=== PATIENT | male | born 1950 | race Caucasian/White ===

== ENCOUNTER 2017-06-25 12:30 | Inpatient (IN) | payer OTHER, MEDICARE ==
[2017-06-25] MEDS ORDERED: ONDANSETRON 4 MG/2 ML VIAL ONE (12:54)
[2017-06-25] MEDS ORDERED: ONDANSETRON 4 MG/2 ML VIAL IVP ONE (12:57)
[2017-06-25] MEDS ORDERED: NS 1,000 ML IV ONE ×3 (12:57→17:12)
[2017-06-25] MEDS ORDERED: CHLORPROMAZINE HCL IV ONE (13:07)
[2017-06-25] MEDS ORDERED: NS IV ONE (13:07)
--- NOTE | 2017-06-25 13:12 | EDPHY ---
H & P Time Seen by Provider: 06/25/17 12:50 HPI/ROS: CHIEF COMPLAINT: Hiccups, nausea and vomiting HISTORY OF PRESENT ILLNESS: The patient is a 66-year-old male with a history of recurrent hiccups who presents emergency department with multiple complaints. He states that on Tuesday night he complained of nausea after eating some grapes. On he began to have episodes of emesis. He has had emesis since . Approximately 10 episodes of nonbloody vomiting. He developed hiccups 2 days ago. These have been persistent since onset. Patient denies any chest pain shortness of breath. No abdominal pain. No diarrhea. No fevers. No dysuria frequency. The patient denies any recent weight loss. Patient states that he has a problem with hiccups in the past. He has been prescribed medication for his hiccups by Dr. Marx. He does not have any this medication currently. He does not recall the name. REVIEW OF SYSTEMS: My complete review of systems is negative except as mentioned in the HPI. Past Medical/Surgical History: Includes pickups, allergies Past surgical history: Includes bilateral hip replacement, inguinal hernia repair Social history: The patient does not smoke. He denies recent alcohol. Smoking Status: Former smoker Physical Exam: 36.7, 137/95, 87, 16, 93% room air GENERAL: Well-appearing, in no acute distress, alert. Hiccups HEENT: Eyes normal to inspection, normal pharynx, no signs of dehydration. NECK: No thyromegaly, no lymphadenopathy, supple. RESPIRATORY: Clear to auscultation bilaterally, no rales, rhonchi or wheezing. CVS: Regular rate and rhythm, no rubs, murmurs, or gallops. ABDOMEN: Soft, nontender, nondistended, no organomegaly. Benign BACK: Normal to inspection, no CVA tenderness. SKIN: Normal color, no rash, warm, dry. No pallor. EXTREMITIES: No pedal edema, no calf tenderness, cyst posterior left calf, no Homans sign or cords, no joint swelling. NEURO/PSYCH: Alert and oriented, normal mood and affect, normal motor sensory exam. No obvious cranial nerve deficit. Constitutional: Initial Vital Signs Temperature (C) 36.7 C 06/25/17 12:39 Heart Rate 87 06/25/17 12:39 Respiratory Rate 16 12/09/17 12:39 Blood Pressure 137/95 H 06/25/17 12:39 O2 Sat (%) 93 06/25/17 12:39 O2 Delivery Mode Room Air Allergies/Adverse Reactions: No Known Allergies Allergy (Verified 06/25/17 12:37) Home Medications: Medication Instructions Recorded Ascorbic Acid [Vitamin C 500 mg 500 mg PO DAILY 09/18/15 (*)] Cholecalciferol Vit D3 [Vitamin D3 2,000 units PO DAILY 09/18/15 2000 units] Cyclobenzaprine [Flexeril 10 MG 10 mg PO HS PRN 09/18/15 (*)] Famciclovir [Famvir] 1,500 mg PO ONCE PRN 09/18/15 Herbals/Supplements -Info Only 1 ea PO DAILY 09/18/15 Multivitamins [Multivitamin (*)] 1 each PO DAILY 09/18/15 Sildenafil Citrate [Viagra] 100 mg PO DAILY PRN 09/18/15 Acetaminophen [Tylenol 325mg (*)] 325 - 650 mg PO Q6 PRN #0 tab 11/06/15 Amoxicillin Trihydrate 500 mg PO TID 06/25/17 [Amoxicillin] Medical Decision Making - Diagnostics Imaging Results: Imaging Impressions Chest X-Ray 06/25/17 13:13 Impression: Air-filled distention of small bowel loops in the left upper quadrant. Otherwise negative chest.. Abdomen CT 06/25/17 13:58 Impression: 1. High-grade mechanical small bowel obstruction, transition located within the pelvis, associated with mild peritoneal ascites. Results called Dr. Son at 4:00 PM. ED Course/Re-evaluation: In the emergency department I discussed possible etiologies with the patient. I answered all his questions. An IV was placed. The patient received 1 L of normal saline for IV hydration. He was given Zofran 4 mg IV for nausea. The patient was given Thorazine 25 mg IV for hiccups. Patient's laboratory studies were notable for white count of 11. Hematocrit was normal. Platelets normal. His chemistry panel was unremarkable except for a mildly high anion gap. Chloride was 94. LFTs were normal. Chest x-ray: There is air in the stomach. No other acute abnormality noted. 1355: On recheck the patient is doing better. His hiccups having on for the past 10 min per report. Patient denies abdominal pain. He still has mild nausea. I rechecked the patient. He was feeling bad after his treatment with Thorazine. CT of the abdomen and pelvis: Please refer the dictated report by Dr. Brain Strickland. The patient has a large distal small-bowel obstruction with market dilatation. I discussed the results with the patient. I answered all his questions. I discussed the case with Dr. Garcia. He will admit the patient for further care. Dr. Garcia requested the patient have the 18 NG tube placed. I explained this to the patient. Dr. Garcia evaluated the patient. Patient reports that his hernia surgery was [address]. Garcia discussed the case Dr. Reynoso. He recommended we page Dr. Lake for admission. Differential Diagnosis: My differential includes but is not limited to intractable hiccups, vagal nerve stimulation, diaphragmatic injury, mass, malignancy, electrolyte abnormality, sugar abnormality, cholecystitis, pancreatitis, cholangitis, small-bowel obstruction, perforation, reflux - Data Points Laboratory Results: Laboratory Results 06/25/17 13:00 06/25/17 13:00 06/25/17 06/25/17 06/25/17 13:00 13:00 13:00 WBC RBC Hgb POC Hgb Hct POC Hct MCV MCH MCHC RDW Plt Count MPV Neut % (Auto) Lymph % (Auto) [place] % (Auto) Eos % (Auto) Baso % (Auto) Nucleat RBC Rel Count Absolute Neuts (auto) Absolute Lymphs (auto) Absolute Monos (auto) Absolute Eos (auto) Absolute Basos (auto) Absolute Nucleated RBC Immature Gran % Immature Gran # PT 13.1 SEC SEC (12.0-15.0) INR 0.97 (0.83-1.16) APTT 23.6 SEC SEC (23.0-38.0) POC Sodium Sodium 137 mEq/L mEq/L (134-144) POC Potassium Potassium 4.5 mEq/L mEq/L (3.5-5.2) POC Chloride Chloride 94 mEq/L L mEq/L (97-110) Carbon Dioxide 26 mEq/l mEq/l (22-31) Anion Gap 17 mEq/L H mEq/L (8-16) POC BUN BUN 21 mg/dL mg/dL (7-23) Creatinine 0.9 mg/dL mg/dL (0.7-1.3) POC Creatinine Estimated GFR > 60 Glucose 123 mg/dL H mg/dL (70-100) POC Glucose Calcium 10.1 mg/dL mg/dL (8.5-10.4) Total Bilirubin 0.8 mg/dL mg/dL (0.1-1.4) Conjugated Bilirubin 0.3 mg/dL mg/dL (0.0-0.5) Unconjugated Bilirubin 0.5 mg/dL mg/dL (0.0-1.1) AST 28 IU/L IU/L (17-59) ALT 38 IU/L IU/L (21-72) Alkaline Phosphatase 72 IU/L IU/L (38-126) Total Protein 8.4 g/dL H g/dL (6.3-8.2) Albumin 4.8 g/dL g/dL (3.5-5.0) Lipase 74 IU/L IU/L (23-300) 06/25/17 06/25/17 13:00 12:52 WBC 11.28 10^3/uL H 10^3/uL (3.80-9.50) RBC 5.25 10^6/uL 10^6/uL (4.40-6.38) Hgb 17.4 g/dL g/dL (13.7-17.5) POC Hgb 18.7 gm/dL H gm/dL (13.7-17.5) Hct 48.8 % % (40.0-51.0) POC Hct 55 % H % (40-51) MCV 93.0 fL fL (81.5-99.8) MCH 33.1 pg pg (27.9-34.1) MCHC 35.7 g/dL g/dL (32.4-36.7) RDW 12.1 % % (11.5-15.2) Plt Count 236 10^3/uL 10^3/uL (150-400) MPV 10.5 fL fL (8.7-11.7) Neut % (Auto) 79.3 % H % (39.3-74.2) Lymph % (Auto) 9.1 % L % (15.0-45.0) [place] % (Auto) 10.5 % % (4.5-13.0) Eos % (Auto) 0.4 % L % (0.6-7.6) Baso % (Auto) 0.3 % % (0.3-1.7) Nucleat RBC Rel Count 0.0 % % (0.0-0.2) Absolute Neuts (auto) 8.96 10^3/uL H 10^3/uL (1.70-6.50) Absolute Lymphs (auto) 1.03 10^3/uL 10^3/uL (1.00-3.00) Absolute Monos (auto) 1.18 10^3/uL H 10^3/uL (0.30-0.80) Absolute Eos (auto) 0.04 10^3/uL 10^3/uL (0.03-0.40) Absolute Basos (auto) 0.03 10^3/uL 10^3/uL (0.02-0.10) Absolute Nucleated RBC 0.00 10^3/uL 10^3/uL (0-0.01) Immature Gran % 0.4 % % (0.0-1.1) Immature Gran # 0.04 10^3/uL 10^3/uL (0.00-0.10) PT INR APTT POC Sodium 134 mEq/L mEq/L (134-144) Sodium POC Potassium 4.2 mEq/L mEq/L (3.3-5.0) Potassium POC Chloride 93 mEq/L L mEq/L (97-110) Chloride Carbon Dioxide Anion Gap POC BUN 21 mg/dL mg/dL (7-23) BUN Creatinine POC Creatinine 0.9 mg/dL mg/dL (0.7-1.3) Estimated GFR Glucose POC Glucose 126 mg/dL H mg/dL (70-100) Calcium Total Bilirubin Conjugated Bilirubin Unconjugated Bilirubin AST ALT Alkaline Phosphatase Total Protein Albumin Lipase Medications Given: Discontinued Medications Sodium Chloride (Ns) 1,000 mls @ 0 mls/hr IV ONCE ONE PRN Reason: Wide Open Stop: 06/25/17 12:58 Last Admin: 06/25/17 12:58 Dose: 1,000 mls Chlorpromazine HCl 50 mg/ (Sodium Chloride) 27 mls @ 62.4 mls/hr IV ONCE ONE Stop: 06/25/17 13:32 Last Admin: 06/25/17 14:44 Dose: 27 mls Sodium Chloride (Ns) 1,000 mls @ 0 mls/hr IV EDNOW ONE; Wide Open PRN Reason: Protocol Stop: 06/25/17 13:13 Last Admin: 06/25/17 14:43 Dose: 1,000 mls Lidocaine (Uroject Lidocaine 2% Jelly) 20 ml TP ONCE ONE Stop: 06/25/17 16:43 Last Admin: 06/25/17 16:45 Dose: 20 ml Ondansetron HCl (Zofran) 4 mg IVP EDNOW ONE Stop: 06/25/17 12:58 Last Admin: 06/25/17 12:58 Dose: 4 mg Point of Care Test Results: 06/25/17 12:52 POC Sodium 134 POC Potassium 4.2 POC Chloride 93 L POC BUN 21 POC Creatinine 0.9 POC Glucose 126 H Departure - Departure Disposition: [facility] [place] Inpatient Acute Clinical Impression: Hiccups, Small bowel obstruction Vomiting Qualifiers: Vomiting type: unspecified Vomiting Intractability: non-intractable Nausea presence: with nausea Qualified Code(s): R11.2 - Nausea with vomiting, unspecified Condition: Good
[2017-06-25 13:14] LABS: % IMMATURE GRANULYOCYTES 0.4 % (0.0-1.1); ABSOLUTE IMMATURE GRANULOCYTES 0.04 10^3/uL (0.00-0.10); ADD DIFF? NO; ADD MORPH? NO; ADD SCAN? NO; ANION GAP 17 mEq/L (8-16); ATYPICAL LYMPHOCYTE FLAG 0 (0-99); CALCIUM 10.1 mg/dL (8.5-10.4); CARBON DIOXIDE 26 mEq/l (22-31); CHLORIDE 94 mEq/L (97-110); CREATININE 0.9 mg/dL (0.7-1.3); FRAGMENT RBC FLAG 0 (0-99); GLOMERULAR FILTRATION RATE > 60; GLUCOSE 123 mg/dL (70-100); HEMATOCRIT 48.8 % (40.0-51.0); HEMOGLOBIN 17.4 g/dL (13.7-17.5); LEFT SHIFT FLG 0 (0-99); LIPEMIA HEMOLYSIS FLAG 90 (0-99); MEAN CELL HEMOGLOBIN 33.1 pg (27.9-34.1); MEAN CELL HEMOGLOBIN CONCENTR. 35.7 g/dL (32.4-36.7); MEAN PLATELET VOLUME 10.5 fL (8.7-11.7); PLATELET CLUMPS FLAG 0 (0-99); PLATELET COUNT 236 10^3/uL (150-400); POTASSIUM 4.5 mEq/L (3.5-5.2); RED BLOOD CELL COUNT 5.25 10^6/uL (4.40-6.38); RED CELL DISTRIBUTION WIDTH 12.1 % (11.5-15.2); SODIUM 137 mEq/L (134-144)
[2017-06-25 13:29] LABS: INR 0.97 (0.83-1.16); PROTIME(PATIENT) 13.1 SEC (12.0-15.0)
[2017-06-25 13:30] LABS: APTT 23.6 SEC (23.0-38.0)
[2017-06-25 13:39] LABS: ALBUMIN 4.8 g/dL (3.5-5.0); BILIRUBIN,TOTAL 0.8 mg/dL (0.1-1.4); BILIRUBIN-CONJUGATED 0.3 mg/dL (0.0-0.5); BILIRUBIN-UNCONJUGATED 0.5 mg/dL (0.0-1.1); TOTAL PROTEIN 8.4 g/dL (6.3-8.2)
[2017-06-25] MEDS ORDERED: IOPAMIDOL (ISOVUE-300) 100 ML BTL ONE (15:00)
[2017-06-25] MEDS ORDERED: LIDOCAINE 2% JELLY 20 ML (UROJECT) TP ONE (16:42)
[2017-06-25] MEDS ORDERED: LIDOCAINE 2% JELLY 20 ML (UROJECT) ONE (16:43)
--- NOTE | 2017-06-25 21:07 | PDCONSULT ---
Customer Service Security Officer Note: I was paged by the [facility] at 20:[address] orders for Mr. Steele, who is s/p recent inguinal hernia repair by Dr. Reynoso. The patient presented to the ED at 13: 08 and was seen by Dr. Lockhart and Dr. Garcia. He has been vomiting since and has not had a BM or passed any flatus since then The patient has what appears to be a high grade SBO by imaging and will require NGT decompression. If not improved surgery may be necessary. 06/26 06:30 PE: awake and alert/reports feeling better Abd: soft/+BS, lap hernia incisions healing w/mild ecchymosis no focal tenderness KUB shows NGT in good position wbc: 5.2 venous lactate 1.2 Imp: SBO recent lap inguinal hernia repair Rec: continue NGT decompression, consider SBFT I will contact his surgeon Dr. Reynoso, who is environmental services project manager today, for surgical follow up Esteban Lake MD, FACS
[2017-06-25] MEDS: LR 1,000 ML IV SCH (21:25)
[2017-06-25] MEDS: FAMOTIDINE 20 MG/NACL 50 ML IV SCH (21:40)
[2017-06-25] MEDS: DIAZEPAM 10 MG/2 ML SYR IVP PRN (22:12)
[2017-06-26] MEDS: LR 1,000 ML IV SCH ×3 (03:57→19:27)
[2017-06-26 04:42] LABS: % IMMATURE GRANULYOCYTES 0.2 % (0.0-1.1); ABSOLUTE IMMATURE GRANULOCYTES 0.01 10^3/uL (0.00-0.10); ADD DIFF? NO; ADD MORPH? NO; ADD SCAN? NO; ATYPICAL LYMPHOCYTE FLAG 10 (0-99); FRAGMENT RBC FLAG 0 (0-99); HEMATOCRIT 42.6 % (40.0-51.0); LEFT SHIFT FLG 10 (0-99); LIPEMIA HEMOLYSIS FLAG 90 (0-99); MEAN CELL HEMOGLOBIN 33.3 pg (27.9-34.1); MEAN CELL HEMOGLOBIN CONCENTR. 35.2 g/dL (32.4-36.7); MEAN CELL VOLUME 94.7 fL (81.5-99.8); MEAN PLATELET VOLUME 10.2 fL (8.7-11.7); PLATELET CLUMPS FLAG 0 (0-99); PLATELET COUNT 193 10^3/uL (150-400); RED CELL DISTRIBUTION WIDTH 12.1 % (11.5-15.2)
[2017-06-26 04:58] LABS: ALANINE AMINOTRANSFERASE 33 IU/L (21-72); ALBUMIN 3.6 g/dL (3.5-5.0); ALKALINE PHOSPHATASE 57 IU/L (38-126); ANION GAP 10 mEq/L (8-16); ASPARTATE AMINOTRANSFERASE 22 IU/L (17-59); BILIRUBIN,TOTAL 1.1 mg/dL (0.1-1.4); CALCIUM 8.8 mg/dL (8.5-10.4); CARBON DIOXIDE 30 mEq/l (22-31); CHLORIDE 97 mEq/L (97-110); CREATININE 0.9 mg/dL (0.7-1.3); GLOMERULAR FILTRATION RATE > 60; GLUCOSE 111 mg/dL (70-100); POTASSIUM 4.6 mEq/L (3.5-5.2); SODIUM 137 mEq/L (134-144); TOTAL PROTEIN 6.9 g/dL (6.3-8.2)
[2017-06-26] MEDS: FAMOTIDINE 20 MG/NACL 50 ML IV SCH ×2 (09:21→21:13)
--- NOTE | 2017-06-26 10:07 | SOAPPROG ---
SOAP Progress Note Assessment/Plan: Assessment: SBO s/p TEP BIHR, improving with NGT placement. Reviewed films/labs with patient; as he is improving plan for SBFT to assess possible mechanical obstruction. Possibility of requiring laparoscopy/laparotomy explained. Questions answered. Plan: 06/26/17 10:03 Subjective: 3 day h/o hiccups followed by N/V. Denies abd pain. Of note, the patient underwent tooth extraction 6 days ago. Missed a day of oral abx and took extra pills the day his symptoms began. Prior to this he was doing well, tolerating po and having normal bowel movements, the last being 06/23. Now denies pain or nausea. Objective: Vital Signs Temp Pulse Resp BP Pulse Ox 36.4 C 79 14 126/75 H 94 06/26/17 07:26 06/26/17 07:26 06/26/17 07:26 06/26/17 07:26 06/26/17 07:26 Laboratory Results 06/26/17 04:28 06/26/17 04:28 06/25/17 06/26/17 06/27/17 05:59 05:59 05:59 Intake Total 1014 Output Total 500 Balance 514 PT 13.1 SEC (12.0-15.0) 06/25/17 13:00 INR 0.97 (0.83-1.16) 06/25/17 13:00 Alert, NAD RRR CTA B Abd soft, NTTP Ecchymosis at umbilical incision site, no erythema No hernia palpated. NGT with 100 cc bilious over the last [address]/labs reviewed ICD10 Worksheet Patient Problems: Problems Problem Status Onset Hiccups Acute Small bowel obstruction Acute Vomiting Acute Primary localized osteoarthritis of left hip Acute
[2017-06-26] MEDS: ONDANSETRON 4 MG/2 ML VIAL IVP PRN ×2 (11:15→19:44)
--- NOTE | 2017-06-26 14:10 | ASMTCMCOM ---
CM Note CM Note Notes: Pt admitted w/SBO. Discussed w/RN; pt normally independant, lives w/. DC needs not clear yet. CM w/f. Date Signed: 06/26/2017 02:10 PM Electronically Signed By:Mahi William RN
[2017-06-26] MEDS: PROMETHAZINE HCL 25 MG/ML INJ IVP PRN ×2 (14:53→21:12)
[2017-06-26] MEDS: DIAZEPAM 10 MG/2 ML SYR IVP PRN (21:55)
[2017-06-27] MEDS: ONDANSETRON 4 MG/2 ML VIAL IVP PRN ×3 (00:16→16:57)
[2017-06-27] MEDS: LR 1,000 ML IV SCH ×3 (02:15→18:24)
[2017-06-27] MEDS: PROMETHAZINE HCL 25 MG/ML INJ IVP PRN ×2 (04:41→14:44)
[2017-06-27 04:53] LABS: HEMATOCRIT 41.9 % (40.0-51.0); HEMOGLOBIN 14.3 g/dL (13.7-17.5); MEAN CELL HEMOGLOBIN 32.6 pg (27.9-34.1); MEAN CELL HEMOGLOBIN CONCENTR. 34.1 g/dL (32.4-36.7); MEAN CELL VOLUME 95.7 fL (81.5-99.8); RED BLOOD CELL COUNT 4.38 10^6/uL (4.40-6.38); RED CELL DISTRIBUTION WIDTH 12.2 % (11.5-15.2)
[2017-06-27 05:02] LABS: ALANINE AMINOTRANSFERASE 33 IU/L (21-72); ALBUMIN 3.6 g/dL (3.5-5.0); ALKALINE PHOSPHATASE 62 IU/L (38-126); ANION GAP 13 mEq/L (8-16); ASPARTATE AMINOTRANSFERASE 22 IU/L (17-59); BILIRUBIN,TOTAL 0.5 mg/dL (0.1-1.4); CARBON DIOXIDE 30 mEq/l (22-31); CHLORIDE 102 mEq/L (97-110); CREATININE 0.7 mg/dL (0.7-1.3); GLOMERULAR FILTRATION RATE > 60; GLUCOSE 120 mg/dL (70-100); POTASSIUM 4.1 mEq/L (3.5-5.2); SODIUM 145 mEq/L (134-144); TOTAL PROTEIN 6.9 g/dL (6.3-8.2)
--- NOTE | 2017-06-27 08:34 | SOAPPROG ---
SOAP Progress Note Assessment/Plan: Assessment: Improving, but still with nausea. Plan repeat xrays, clamping trial. If improved will advance diet. Plan: 06/26/17 10:03 06/27/17 08:32 Subjective: Patient with multiple large BM's overnight. Still with mild intermittent nausea. Denies pain. Objective: Vital Signs Temp Pulse Resp BP Pulse Ox 36.4 C 81 14 144/78 H 95 06/27/17 08:00 06/27/17 08:00 06/27/17 08:00 06/27/17 08:00 06/27/17 08:00 Laboratory Results 06/27/17 04:32 06/27/17 04:32 06/26/17 06/27/17 06/28/17 05:59 05:59 05:59 Intake Total 1014 2951 Output Total 500 2400 200 Balance 514 551 -200 PT 13.1 SEC (12.0-15.0) 06/25/17 13:00 INR 0.97 (0.83-1.16) 06/25/17 13:00 Alert, NAD RRR Abd soft, NTTP NGT with 200 cc over 8 hours. ICD10 Worksheet Patient Problems: Problems Problem Status Onset Hiccups Acute Small bowel obstruction Acute Vomiting Acute Primary localized osteoarthritis of left hip Acute
[2017-06-27] MEDS: FAMOTIDINE 20 MG/NACL 50 ML IV SCH ×2 (09:33→21:54)
[2017-06-27] MEDS ORDERED: D10W 1,000 ML IV PRN (13:38)
[2017-06-27] MEDS ORDERED: ALTEPLASE 2 MG VIAL IVP PRN (13:41)
[2017-06-27] MEDS: DIAZEPAM 10 MG/2 ML SYR IVP PRN (17:04)
[2017-06-27 17:31] LABS: % IMMATURE GRANULYOCYTES 0.3 % (0.0-1.1); ABSOLUTE IMMATURE GRANULOCYTES 0.02 10^3/uL (0.00-0.10); ADD DIFF? NO; ADD MORPH? NO; ADD SCAN? NO; ATYPICAL LYMPHOCYTE FLAG 0 (0-99); FRAGMENT RBC FLAG 0 (0-99); HEMATOCRIT 41.8 % (40.0-51.0); HEMOGLOBIN 13.9 g/dL (13.7-17.5); LEFT SHIFT FLG 10 (0-99); LIPEMIA HEMOLYSIS FLAG 80 (0-99); MEAN CELL HEMOGLOBIN 32.4 pg (27.9-34.1); MEAN CELL HEMOGLOBIN CONCENTR. 33.3 g/dL (32.4-36.7); MEAN CELL VOLUME 97.4 fL (81.5-99.8); MEAN PLATELET VOLUME 10.8 fL (8.7-11.7); PLATELET CLUMPS FLAG 0 (0-99); PLATELET COUNT 200 10^3/uL (150-400); RED BLOOD CELL COUNT 4.29 10^6/uL (4.40-6.38); RED CELL DISTRIBUTION WIDTH 12.3 % (11.5-15.2)
[2017-06-27] MEDS: ENOXAPARIN 40 MG/0.4 ML SYR SC SCH (17:33)
[2017-06-27 17:41] LABS: ALANINE AMINOTRANSFERASE 31 IU/L (21-72); ALBUMIN 3.8 g/dL (3.5-5.0); ALKALINE PHOSPHATASE 66 IU/L (38-126); ANION GAP 11 mEq/L (8-16); ASPARTATE AMINOTRANSFERASE 23 IU/L (17-59); BILIRUBIN,TOTAL 0.5 mg/dL (0.1-1.4); CARBON DIOXIDE 29 mEq/l (22-31); CHLORIDE 105 mEq/L (97-110); CREATININE 0.8 mg/dL (0.7-1.3); GLOMERULAR FILTRATION RATE > 60; GLUCOSE 114 mg/dL (70-100); MAGNESIUM 2.5 mg/dL (1.6-2.3); SODIUM 145 mEq/L (134-144); TOTAL PROTEIN 6.9 g/dL (6.3-8.2); TRIGLYCERIDE 59 mg/dL (40-150)
[2017-06-28] MEDS: PROMETHAZINE HCL 25 MG/ML INJ IVP PRN (00:40)
[2017-06-28] MEDS: LR 1,000 ML IV SCH ×2 (00:40→06:27)
[2017-06-28 06:02] LABS: INR 1.12 (0.83-1.16); PROTIME(PATIENT) 14.6 SEC (12.0-15.0)
[2017-06-28 06:03] LABS: APTT 24.3 SEC (23.0-38.0)
[2017-06-28 06:18] LABS: % IMMATURE GRANULYOCYTES 0.3 % (0.0-1.1); ABSOLUTE IMMATURE GRANULOCYTES 0.02 10^3/uL (0.00-0.10); ADD DIFF? NO; ADD MORPH? NO; ADD SCAN? NO; ATYPICAL LYMPHOCYTE FLAG 10 (0-99); FRAGMENT RBC FLAG 0 (0-99); HEMATOCRIT 39.8 % (40.0-51.0); HEMOGLOBIN 13.2 g/dL (13.7-17.5); LEFT SHIFT FLG 10 (0-99); LIPEMIA HEMOLYSIS FLAG 80 (0-99); MEAN CELL HEMOGLOBIN 32.7 pg (27.9-34.1); MEAN CELL HEMOGLOBIN CONCENTR. 33.2 g/dL (32.4-36.7); MEAN CELL VOLUME 98.5 fL (81.5-99.8); MEAN PLATELET VOLUME 11.2 fL (8.7-11.7); PLATELET CLUMPS FLAG 0 (0-99); PLATELET COUNT 186 10^3/uL (150-400); RED BLOOD CELL COUNT 4.04 10^6/uL (4.40-6.38); RED CELL DISTRIBUTION WIDTH 12.2 % (11.5-15.2)
[2017-06-28 06:23] LABS: ALANINE AMINOTRANSFERASE 35 IU/L (21-72); ALBUMIN 3.2 g/dL (3.5-5.0); ALKALINE PHOSPHATASE 56 IU/L (38-126); ANION GAP 12 mEq/L (8-16); ASPARTATE AMINOTRANSFERASE 21 IU/L (17-59); BILIRUBIN,TOTAL 0.7 mg/dL (0.1-1.4); CALCIUM 8.7 mg/dL (8.5-10.4); CARBON DIOXIDE 29 mEq/l (22-31); CHLORIDE 108 mEq/L (97-110); CREATININE 0.8 mg/dL (0.7-1.3); GLOMERULAR FILTRATION RATE > 60; GLUCOSE 99 mg/dL (70-100); MAGNESIUM 2.4 mg/dL (1.6-2.3); POTASSIUM 4.1 mEq/L (3.5-5.2); SODIUM 149 mEq/L (134-144); TOTAL PROTEIN 6.1 g/dL (6.3-8.2)
[2017-06-28] MEDS ORDERED: BENZOCAINE 57 G CAN HURRICAINE MM PRN (07:40)
--- NOTE | 2017-06-28 07:43 | SOAPPROG ---
SOAP Progress Note Assessment/Plan: Assessment: Unchanged. Patient wishes to try clamping trial again. Discussed surgical options again; patient will consider if clamping trial fails. Plan: 06/26/17 10:03 06/27/17 08:32 06/28/17 07:41 Subjective: Patient without complaints, no N/V. No BM. Denies pain Objective: Vital Signs Temp Pulse Resp BP Pulse Ox 36.9 C 75 21 H 127/69 H 97 06/28/17 04:00 06/28/17 04:00 06/28/17 04:00 06/28/17 04:00 06/28/17 04:00 Laboratory Results 06/28/17 05:15 06/28/17 05:15 06/27/17 06/28/17 06/29/17 05:59 05:59 05:59 Intake Total 2951 2920 Output Total 2400 1550 Balance 551 1370 PT 14.6 SEC (12.0-15.0) 06/28/17 05:15 INR 1.12 (0.83-1.16) 06/28/17 05:15 Alert, NAD RRR Abd soft, NTTP 300 NGT OP over 12 hours. ICD10 Worksheet Patient Problems: Problems Problem Status Onset Hiccups Acute Small bowel obstruction Acute Vomiting Acute Primary localized osteoarthritis of left hip Acute
[2017-06-28] MEDS ORDERED: D5W 1/2 NS W/ 20 KCl/L 1,000 ML IV SCH (07:45)
[2017-06-28] MEDS ORDERED: BENZOCAINE UNIT DOSE SPRAY HURRICAINE MM PRN (09:02)
[2017-06-28] MEDS ORDERED: CEPACOL LOZENGE PO PRN (09:02)
[2017-06-28] MEDS: FAMOTIDINE 20 MG/NACL 50 ML IV SCH (09:05)
[2017-06-28] MEDS: ENOXAPARIN 40 MG/0.4 ML SYR SC SCH (09:05)
[2017-06-28] MEDS ORDERED: D5W 1,000 ML IV SCH (13:15)
--- NOTE | 2017-06-28 15:11 | GCON ---
[f rep st] CONSULTATION MEDICAL CONSULTATION DATE OF CONSULTATION: 06/28/2017 REASON FOR CONSULTATION: Opinion regarding cause of vomiting. HISTORY OF PRESENT ILLNESS: The patient is a 66-year-old male who is otherwise healthy and underwent elective bilateral inguinal hernia repair on June 16. He did well postoperatively and states he did not take any opioid pain medications. He managed his pain with Tylenol and ibuprofen. Approximately 1 week postop, he had a tooth extracted. Again, he did not use any opioid pain medication. He returned to work the following day. He had been eating and drinking normally and having normal bowel movements until 6 days prior to presentation. At that time, he began to notice some increased lower abdominal discomfort and developed hiccups. These were quite severe for a couple of days. Then, the day before presentation, he began vomiting. He reported multiple episodes of vomiting. He denies any hematemesis or coffee-ground emesis. His last bowel movement was June 22 and he reported this was normal, large, formed stool. He denies fevers or chills. Given his persistent vomiting and increased pain, he presented to the emergency department where an abdominal CT scan revealed a high grade small bowel obstruction. He was admitted to the hospital to the surgery service for further management. Since admission, he has had an NG tube placed. He underwent a small bowel followthrough study on June 26, which showed incomplete transit of small bowel contrast at 4-1/2 hours. He has had significant output from his NG tube. However, he did have 2 small bowel movements yesterday. His NG tube is clamped today and the plan is to check for residuals. If he has low residuals, then he may be started on a clear liquid diet per the surgery service. At this time, he denies pain. He has had no vomiting today. He thinks he has heard some bowel sounds. He remains afebrile. He actually feels a bit hungry and would like to drink liquids. PAST MEDICAL AND SURGICAL HISTORY: 1. Bilateral inguinal hernia repair June 16, 2017. 2. Bilateral hip replacement. MEDICATIONS: Please see [facility] for completed outpatient medication list. ALLERGIES: He has no known drug allergies. SOCIAL HISTORY: The patient is . He lives independently. He works in sales at [employer]. He is a former smoker. He denies significant alcohol use. FAMILY HISTORY: Reviewed and noncontributory. REVIEW OF SYSTEMS: A 10-point review of systems was performed and is negative except as per HPI. OBJECTIVE: VITAL SIGNS: Temperature 37.2, blood pressure 130/77, heart rate 85 , respiratory rate 16, he is 96% on room air. GENERAL: The patient is awake, alert, oriented, in no acute distress. HEENT: Head is atraumatic, normocephalic. Pupils equal, round, and reactive to light, extraocular intact. Oropharynx is clear. Mucous membranes are moist. NG tube is in place. NECK : Supple. There is no JVD. HEART: Regular rate and rhythm without murmur. LUNGS: Clear auscultation bilaterally. ABDOMEN: Soft, nondistended. No significant tenderness to palpation. Slightly decreased bowel tones are heard. EXTREMITIES: Without cyanosis, clubbing, or edema. NEUROLOGIC: Grossly nonfocal. LABORATORY DATA: CBC earlier this morning reveals a normal white blood cell count, hemoglobin 13.2, platelets 186. INR is normal at 1.12. Sodium is elevated 149, creatinine is normal at 0.8, magnesium is 2.4. Note, he had a negative fecal occult blood test on June 27. His lactate was normal on admission. Abdomen CT June 25 showed high-grade mechanical small bowel obstruction with a transition point located within the pelvis and mild peritoneal ascites. Small bowel follow through June 26, 2017, showed findings consistent with mechanical small bowel obstruction, presumably involving the distal small bowel with incomplete transit of small bowel contrast at 4-1/2 hours. Abdomen x-ray June 27, 2017 shows findings consistent with persistent high- grade partial small bowel obstruction. ASSESSMENT AND PLAN: The patient is a 66-year-old male who is admitted to the hospital 12 days after inguinal hernia repair with a small bowel obstruction. 1. Small bowel obstruction: The patient is being managed by the surgery service. His nasogastric tube has been clamped today and we are currently monitoring for residuals. His surgeon has offered him surgery if he fails nasogastric tube clamping and the patient is considering this. I think it is unlikely there is another source of his vomiting. I will check a lipase, though I suspect his vomiting is likely related to his small bowel obstruction. His exam is reassuring today with no further vomiting. He remains n.p.o. and will consider a trial of clears if he passes his nasogastric tube clamping trial. 2. Hypernatremia: His sodium has climbed from 137 to 149. I will change his intravenous fluids to D5W at 100 an hour and recheck a sodium level tonight at 7 :00 p.m. with further fluid adjustments at that time. 3. Deep vein thrombosis prophylaxis: Lovenox. CODE STATUS: Patient is full code. DISPOSITION: Patient will continue inpatient status. Medicine service will continue to follow along. Please not hesitate to contact us with any further questions. /[id number]/MODL MTDD
--- NOTE | 2017-06-28 18:07 | ASMTCMCOM ---
CM Note CM Note Notes: Patient starting on TPN today. Still unknown if patient will discharge on TPN. NG clamped today. If he does well then they will consider surgery. Patient will most likely discharge home with home health pending decisions for TPN and surgery Case management will continue to follow. Date Signed: 06/28/2017 06:06 PM Electronically Signed By:WINSTON Purcell
[2017-06-28] MEDS ORDERED: TPN W/ FAMOTIDINE 1 EA BAG IV SCH (21:00)
[2017-06-28] MEDS: DIAZEPAM 10 MG/2 ML SYR IVP PRN (22:33)
[2017-06-29 05:44] LABS: % IMMATURE GRANULYOCYTES 0.3 % (0.0-1.1); ABSOLUTE IMMATURE GRANULOCYTES 0.02 10^3/uL (0.00-0.10); ADD DIFF? NO; ADD MORPH? NO; ADD SCAN? NO; ATYPICAL LYMPHOCYTE FLAG 40 (0-99); FRAGMENT RBC FLAG 0 (0-99); HEMATOCRIT 36.5 % (40.0-51.0); HEMOGLOBIN 12.3 g/dL (13.7-17.5); LEFT SHIFT FLG 10 (0-99); LIPEMIA HEMOLYSIS FLAG 80 (0-99); MEAN CELL HEMOGLOBIN 33.4 pg (27.9-34.1); MEAN CELL HEMOGLOBIN CONCENTR. 33.7 g/dL (32.4-36.7); MEAN CELL VOLUME 99.2 fL (81.5-99.8); MEAN PLATELET VOLUME 10.5 fL (8.7-11.7); PLATELET CLUMPS FLAG 20 (0-99); PLATELET COUNT 167 10^3/uL (150-400); RED BLOOD CELL COUNT 3.68 10^6/uL (4.40-6.38)
[2017-06-29 06:14] LABS: ALANINE AMINOTRANSFERASE 32 IU/L (21-72); ALBUMIN 2.6 g/dL (3.5-5.0); ALKALINE PHOSPHATASE 47 IU/L (38-126); ANION GAP 9 mEq/L (8-16); ASPARTATE AMINOTRANSFERASE 30 IU/L (17-59); BILIRUBIN,TOTAL 0.6 mg/dL (0.1-1.4); CARBON DIOXIDE 24 mEq/l (22-31); CHLORIDE 107 mEq/L (97-110); CREATININE 0.7 mg/dL (0.7-1.3); GLOMERULAR FILTRATION RATE > 60; GLUCOSE 117 mg/dL (70-100); MAGNESIUM 2.1 mg/dL (1.6-2.3); POTASSIUM 3.6 mEq/L (3.5-5.2); SODIUM 140 mEq/L (134-144); TOTAL PROTEIN 5.2 g/dL (6.3-8.2)
[2017-06-29 06:17] LABS: INR 1.17 (0.83-1.16); PROTIME(PATIENT) 15.1 SEC (12.0-15.0)
[2017-06-29 06:18] LABS: APTT 28.3 SEC (23.0-38.0)
[2017-06-29] MEDS ORDERED: D5W 1/2 NS W/ 20 KCl/L 1,000 ML IV SCH (08:45)
[2017-06-29 08:53] VITALS: RESP 18
[2017-06-29] MEDS ORDERED: K PHOS 10 MMOL in D5W 250 ML IV ONE (09:30)
[2017-06-29] MEDS: ENOXAPARIN 40 MG/0.4 ML SYR SC SCH (09:30)
--- NOTE | 2017-06-29 09:52 | SOAPPROG ---
SOAP Progress Note Assessment/Plan: Assessment: Markedly improved. Advance diet, d/c home if tolerated. Signs/symptoms of concern reviewed, questions answered. Plan: 06/26/17 10:03 06/27/17 08:32 06/28/17 07:41 06/29/17 09:51 Subjective: Patient feels better, tolerating po well, no N/V. + BM. Ambulating, voiding. Objective: Vital Signs Temp Pulse Resp BP Pulse Ox 36.7 C 72 18 117/79 94 06/29/17 08:50 06/29/17 08:50 06/29/17 08:50 06/29/17 08:50 06/29/17 08:50 Laboratory Results 06/29/17 05:35 06/29/17 05:35 06/28/17 06/29/17 06/30/17 05:59 05:59 05:59 Intake Total 2920 2483 Output Total 1550 100 Balance 1370 2383 PT 15.1 SEC (12.0-15.0) H 06/29/17 05:35 INR 1.17 (0.83-1.16) H 06/29/17 05:35 Alert, NAD RRR Abd soft, NTTP ICD10 Worksheet Patient Problems: Problems Problem Status Onset Hiccups Acute Small bowel obstruction Acute Vomiting Acute Primary localized osteoarthritis of left hip Acute
[2017-06-29] MEDS ORDERED: D5W 1,000 ML IV SCH (10:00)
[2017-06-29 17:04] VITALS: BP 154/87; PULSE 77; TEMP 97.9; O2SAT 95
--- NOTE | 2017-06-29 17:48 | ASDISCHSUM ---
Discharge Information Plan Status:Home with Home Health Medically Cleared to Leave: Discharge Date:06/29/2017 05:34 PM CM D/C Disposition: ADT D/C Disposition:Home, Routine, Self-Care Projected Discharge Date:06/29/2017 05:34 PM Transportation at D/C: Discharge Delay Reason: Follow-Up Date:06/29/2017 05:34 PM Discharge Slot: Final Diagnosis: Placement Information Patient Contact Information Contact Name:YANA Relationship: Address:[address] Work Phone: City:[place] [facility] Phone: State/Zip Code:[place] [address] Email: Financial Information Financial Class: Primary Plan Desc:MEDICARE INPATIENT Primary Plan Number:[id number] Secondary Plan Desc:[employer]/MDR SUPPLEMENT Secondary Plan Number:[id number] Assessment Information [facility] CM Progress Note CM Note CM Note Notes: Pt admitted w/SBO. Discussed w/RN; pt normally independant, lives w/. DC needs not clear yet. CM w/f. Date Signed: 06/26/2017 02:10 PM Electronically Signed By:Mahi William RN [facility] CM Progress Note CM Note CM Note Notes: Patient starting on TPN today. Still unknown if patient will discharge on TPN. NG clamped today. If he does well then they will consider surgery. Patient will most likely discharge home with home health pending decisions for TPN and surgery Case management will continue to follow. Date Signed: 06/28/2017 06:06 PM Electronically Signed By:WINSTON Purcell Intervention Information
--- NOTE | 2017-07-04 09:58 | PQFORM ---
PHYSICIAN QUERY FORM Needs Your Response This query form is being sent to you to assure this patient record is coded properly. Please respond to the question below: DIAGRAMMER AND SEAMER QUESTION: Dr Reynoso This patient with Intestinal Obstruction had Inguinal hernia repair 10 days prior to admission - would you consider the obstruction to be a complication of his previous surgery ? _X__ Yes ___ No ___ Unable to determine ___ Other (please specify ) Thank You Barbra SPIVEY Motion Picture Narrator INSTRUCTIONS FOR RESPONSE: Answer question by clicking on the "Edit Document" button. Move cursor to area below the stars. When complete, hit "Save." Click on the "Sign" button, then click "Sign" again. Type in your PIN and hit "Enter." MTDD
== END 2017-06-29 17:34 | disposition home or self-care (01) | DRG 389 ==
LOC: F1N 18:24 → OBSVTOIN 06-26 03:42 → UNDODISIN 06-29 16:05
PROVIDERS: ADMIT Surgery; ATTEND Surgery
PROC: 02HV33Z Insertion of Infusion Device into Superior Vena Cava, Percutaneous Approach (ICD-10-PCS; principal; 2017-06-27)
DX: K91.30 Postprocedural intestinal obstruction, unspecified as to partial versus complete (principal); E87.0 Hyperosmolality and hypernatremia; Z96.643 Presence of artificial hip joint, bilateral; Z87.891 Personal history of nicotine dependence
CPT/HCPCS: 82947-QW; 96365; C1751; J1650; J2405; J2550; J3230; Q9967

== ENCOUNTER 2017-06-29 20:06 | Inpatient (IN) | payer OTHER, MEDICARE ==
--- NOTE | 2017-06-29 21:51 | PDGENHP ---
History and Physical History and Physical: 66 y/o male discharged earlier today after apparent resolution of PSBO. Patient underwent TEP BIHR 2 weeks ago and developed N/V; admitted and imaging showed PSBO. Patient declined surgery at the time and improved. After discharge today he developed progressive N/V. Denies abd pain. No F/C. + BM. Still with bouts of emesis, described as bilious. PMHx: none PSHx: as above, B FREDY's Meds: none All: NKDA Currently AF VSS Alert, appears uncomfortable. RRR CTA B Abd slightly distended but soft NTTP Ecchymosis at umbilical incision site, no erythema. A/P: Recurrent PSBO. Options d/w patient and , recommend IVF and NGT placement. Will likely require diagnostic laparoscopy vs. exploratory laparotomy when stabilized. Signs/symptoms of concern discussed, question answered.
[2017-06-29] MEDS: ONDANSETRON 4 MG/2 ML VIAL IVP PRN (22:04)
[2017-06-29] MEDS: LR 1,000 ML IV SCH (22:04)
[2017-06-30] MEDS: PROMETHAZINE HCL 25 MG/ML INJ IVP PRN (01:24)
[2017-06-30] MEDS: HYDROmorphone HCL/NS/PF 0.4 MG/2 ML SYR IVP PRN ×2 (01:39→05:17)
[2017-06-30] MEDS: ONDANSETRON 4 MG/2 ML VIAL IVP PRN ×3 (03:53→22:35)
[2017-06-30 05:30] LABS: % IMMATURE GRANULYOCYTES 0.3 % (0.0-1.1); ABSOLUTE IMMATURE GRANULOCYTES 0.02 10^3/uL (0.00-0.10); ADD DIFF? NO; ADD MORPH? NO; ADD SCAN? NO; ATYPICAL LYMPHOCYTE FLAG 30 (0-99); FRAGMENT RBC FLAG 0 (0-99); HEMATOCRIT 40.9 % (40.0-51.0); HEMOGLOBIN 14.3 g/dL (13.7-17.5); LEFT SHIFT FLG 10 (0-99); LIPEMIA HEMOLYSIS FLAG 90 (0-99); MEAN CELL HEMOGLOBIN 33.3 pg (27.9-34.1); MEAN CELL VOLUME 95.1 fL (81.5-99.8); MEAN PLATELET VOLUME 11.2 fL (8.7-11.7); PLATELET CLUMPS FLAG 0 (0-99); PLATELET COUNT 185 10^3/uL (150-400); RED CELL DISTRIBUTION WIDTH 11.9 % (11.5-15.2)
[2017-06-30 05:45] LABS: ALANINE AMINOTRANSFERASE 44 IU/L (21-72); ALBUMIN 3.4 g/dL (3.5-5.0); ALKALINE PHOSPHATASE 64 IU/L (38-126); ANION GAP 13 mEq/L (8-16); ASPARTATE AMINOTRANSFERASE 31 IU/L (17-59); BILIRUBIN,TOTAL 0.7 mg/dL (0.1-1.4); CALCIUM 8.7 mg/dL (8.5-10.4); CARBON DIOXIDE 30 mEq/l (22-31); CHLORIDE 99 mEq/L (97-110); CREATININE 0.7 mg/dL (0.7-1.3); GLOMERULAR FILTRATION RATE > 60; GLUCOSE 107 mg/dL (70-100); POTASSIUM 3.6 mEq/L (3.5-5.2); SODIUM 142 mEq/L (134-144); TOTAL PROTEIN 6.4 g/dL (6.3-8.2)
--- NOTE | 2017-06-30 11:24 | SOAPPROG ---
SOAP Progress Note Assessment/Plan: Assessment: Recurrent PSBO. Options reviewed, plan for dx laparoscopy vs laparotomy for likely adhesion. Possibility of bowel resection explained. Questions answered. Plan for operative intervention this PM. Plan: 06/30/17 11:22 Subjective: Patient feels better, denies pain, N/V currently. No BM. Objective: Vital Signs Temp Pulse Resp BP Pulse Ox 36.9 C 81 20 134/83 H 93 06/30/17 07:53 06/30/17 07:53 06/30/17 07:53 06/30/17 07:53 06/30/17 07:53 Laboratory Results 06/30/17 04:06 06/30/17 04:06 06/29/17 06/30/17 07/01/17 05:59 05:59 05:59 Output Total 300 125 Balance -300 -125 Alert, NAD RRR Abd slightly distended but soft. NTTP ICD10 Worksheet Patient Problems: Problems Problem Status Onset Hiccups Acute Primary localized osteoarthritis of left hip Acute Small bowel obstruction Acute Vomiting Acute
[2017-06-30] MEDS: LR 1,000 ML IV SCH (11:31)
[2017-06-30] MEDS ORDERED: LR 500 ML IV ONE (12:00)
--- NOTE | 2017-06-30 12:05 | ASMTCMCOM ---
CM Note CM Note Notes: Pt admitted for recurrant PSBO. Per progress notes, pt will go to surgery later today. Pt lives at home w/. DC needs not clear at this time; CM will follow. Date Signed: 06/30/2017 12:04 PM Electronically Signed By:Mahi William RN
[2017-06-30] MEDS ORDERED: BUPIVACAINE 0.5% 30 ML SDV ONE (17:16)
[2017-06-30] MEDS ORDERED: MIDAZOLAM 2 MG/2 ML VIAL IVP ONE (17:29)
--- NOTE | 2017-06-30 17:29 | PDANEPAE ---
ANE History of Present Illness Diagnostic laparoscopy, poss. laparotomy ANE Past Medical History - Cardiovascular History Hx Hypertension: No Hx Arrhythmias: No Hx Chest Pain: No Hx Coronary Artery / Peripheral Vascular Disease: No Hx CHF / Valvular Disease: No Hx Palpitations: No - Pulmonary History Hx COPD: No Hx Asthma/Reactive Airway Disease: No Hx Recent Upper Respiratory Infection: No Hx Oxygen in Use at Home: No Hx Sleep Apnea: No Sleep Apnea Screening Result - Last Documented: Positive - Neurologic History Hx Cerebrovascular Accident: No Hx Seizures: No Hx Dementia: No - Endocrine History Hx Diabetes: No - Renal History Hx Renal Disorders: No - Liver History Hx Hepatic Disorders: No - Neurological & Psychiatric Hx Hx Neurological and Psychiatric Disorders: No - Cancer History Hx Cancer: Yes Cancer History Comment: MELANOMA L FOREARM - Congenital Disorder History Hx Congenital Disorders: No - GI History Hx Gastrointestinal Disorders: No - Other Health History Other Health History: NEG - Chronic Pain History Chronic Pain: No - Surgical History Prior Surgeries: R FREDY. MELANOMA L ARM. COLONOSCOPY ANE Review of Systems Review of Systems: ANE Patient History - Allergies Allergies/Adverse Reactions: No Known Allergies Allergy (Verified 06/25/17 12:37) - Home Medications Home medications: home medication list seen and reviewed Home Medications: Ascorbic Acid [Vitamin C 500 mg (*)] 500 mg PO DAILY 09/18/15 [Last Taken ] Cholecalciferol Vit D3 [Vitamin D3 2000 units] 2,000 units PO DAILY 09/18/15 [ Last Taken 06/24/17] Cyclobenzaprine [Flexeril 10 MG (*)] 10 mg PO HS PRN 09/18/15 [Last Taken ] Famciclovir [Famvir] 1,500 mg PO ONCE PRN 09/18/15 [Last Taken 10/22/15] Herbals/Supplements -Info Only 1 ea PO DAILY 09/18/15 [Last Taken 06/24/17] Multivitamins [Multivitamin (*)] 1 each PO DAILY 09/18/15 [Last Taken 06/24/17] Sildenafil Citrate [Viagra] 100 mg PO DAILY PRN 09/18/15 [Last Taken 10/22/15] Amoxicillin Trihydrate [Amoxil] 500 mg PO TID 06/25/17 [Last Taken 06/26/17] - NPO status NPO Since - Liquids (Date): 06/29/17 NPO Since - Liquids (Time): 18:00 NPO Since - Solids (Date): 06/29/17 NPO Since - Solids (Time): 12:00 - Smoking Hx Smoking Status: Former smoker ANE Labs/Vital Signs - Labs Result Diagrams: 06/30/17 04:06 06/30/17 04:06 - Vital Signs Blood Pressure: 109/64 Heart Rate: 77 Respiratory Rate: 18 O2 Sat (%): 86 Height: 172.72 cm Weight: 69.853 kg ANE Anesthesia Plan Anesthesia Plan: general endotracheal anesthesia
[2017-06-30] MEDS ORDERED: LR 1,000 ML IV ONE (17:51)
[2017-06-30] MEDS ORDERED: ROCURONIUM 50 MG/5 ML VIAL ONE ×2 (18:27→20:22)
[2017-06-30] MEDS ORDERED: DEXAMETHASONE 4 MG/ML VIAL ONE (18:27)
[2017-06-30] MEDS ORDERED: LIDOCAINE 2% 100 MG/5 ML SYR ONE (18:27)
[2017-06-30] MEDS ORDERED: ONDANSETRON 4 MG/2 ML VIAL ONE ×2 (18:27→22:31)
[2017-06-30] MEDS ORDERED: PROPOFOL 200 MG/20 ML VIAL ONE (18:27)
[2017-06-30] MEDS ORDERED: fentaNYL 250 MCG/5 ML INJ ONE (18:27)
[2017-06-30] MEDS ORDERED: PHENYLEPHRINE HCL 100 MCG/ML SYR ONE (18:42)
[2017-06-30] MEDS ORDERED: cefOXitin SODIUM 1 GM in D5W 50 ML IV ONE ×2 (18:45)
[2017-06-30] MEDS ORDERED: OXYCODONE/APAP 5/325 TAB PO PRN (20:02)
[2017-06-30] MEDS ORDERED: ACETAMINOPHEN 500 MG TAB PO PRN (20:02)
[2017-06-30] MEDS ORDERED: PROMETHAZINE HCL 25 MG/ML INJ IVP PRN (20:02)
[2017-06-30] MEDS ORDERED: MEPERIDINE 25 MG/ML SYR IVP PRN (20:02)
[2017-06-30] MEDS ORDERED: NALOXONE HCL 0.4 MG/ML INJ IVP PRN (20:02)
[2017-06-30] MEDS ORDERED: HYDROCODONE/APAP 5/325 TAB PO PRN (20:02)
--- NOTE | 2017-06-30 20:09 | POSTANESTH ---
Post Anesthetic Evaluation Cardiovascular Status: Normal, Stable, Similar to Pre-Op Cond Respiratory Status: Normal, Stable, Similar to Pre-op Cond. Level of Consciousness/Mental Status: Can Participate in Eval, Mildly Sleepy, Arousable Pain Control: Adequate, Prn Tx Ordered Nausea/Vomiting Control: Adequate, Prn Tx Ordered Complications Possibly Related to Anesthesia: None Noted
[2017-06-30] MEDS ORDERED: HYDROmorphONE/DILAUDID 2 MG/ML INJ ONE (21:24)
[2017-06-30] MEDS ORDERED: NEOSTIGMINE METHYLSULFATE 3 MG/3 ML SYR ONE (21:48)
[2017-06-30] MEDS ORDERED: GLYCOPYRROLATE 0.2 MG/1 ML VIAL ONE ×2 (21:48)
--- NOTE | 2017-06-30 22:21 | POSTOPPROG ---
Post Op Note Date of Operation: 06/30/17 Surgeon: Adrian Reynoso Anesthesiologist: Dr. Alejandra Anesthesia: GET(General Endotracheal) Pre-op Diagnosis: PSBO Post-op Diagnosis: SB adhesions Procedure: Lap assisted SB resection Findings: Adherent SB to L hernia mesh site Inf/Abcess present in the surg proc area at time of surgery?: Yes Depth: Organ Space EBL: 100-500
[2017-06-30] MEDS ORDERED: HYDROmorphONE/DILAUDID 1 MG/ML INJ ONE (22:31)
[2017-06-30] MEDS ORDERED: fentaNYL 100 MCG/2 ML INJ ONE (22:31)
[2017-06-30] MEDS: HYDROmorphONE/DILAUDID 1 MG/ML INJ IVP PRN ×2 (22:37→23:19)
[2017-06-30] MEDS: fentaNYL 100 MCG/2 ML INJ IVP PRN ×2 (22:37→22:49)
[2017-07-01] MEDS: PROMETHAZINE HCL 25 MG/ML INJ IVP PRN (00:11)
[2017-07-01] MEDS: HYDROmorphone HCL/NS/PF 0.4 MG/2 ML SYR IVP PRN ×6 (00:26→11:35)
[2017-07-01] MEDS: LORazepam 2 MG/ML INJ IVP SCH ×2 (00:44→21:15)
[2017-07-01] MEDS: ONDANSETRON 4 MG/2 ML VIAL IVP PRN ×3 (02:29→13:13)
[2017-07-01] MEDS: LR 1,000 ML IV SCH ×2 (03:41→13:19)
[2017-07-01 04:53] LABS: ADD MORPH? NO; ADD SCAN? YES; ATYPICAL LYMPHOCYTE FLAG 30 (0-99); FRAGMENT RBC FLAG 0 (0-99); HEMATOCRIT 38.5 % (40.0-51.0); HEMOGLOBIN 13.2 g/dL (13.7-17.5); LIPEMIA HEMOLYSIS FLAG 90 (0-99); MEAN CELL HEMOGLOBIN 33.1 pg (27.9-34.1); MEAN CELL HEMOGLOBIN CONCENTR. 34.3 g/dL (32.4-36.7); MEAN CELL VOLUME 96.5 fL (81.5-99.8); PLATELET CLUMPS FLAG 10 (0-99); PLATELET COUNT 202 10^3/uL (150-400); RED BLOOD CELL COUNT 3.99 10^6/uL (4.40-6.38); RED CELL DISTRIBUTION WIDTH 11.9 % (11.5-15.2)
[2017-07-01 05:01] LABS: LEFT SHIFT FLG 190 (0-99)
[2017-07-01 05:04] LABS: ALANINE AMINOTRANSFERASE 47 IU/L (21-72); ALBUMIN 2.8 g/dL (3.5-5.0); ALKALINE PHOSPHATASE 53 IU/L (38-126); ANION GAP 12 mEq/L (8-16); ASPARTATE AMINOTRANSFERASE 25 IU/L (17-59); BILIRUBIN,TOTAL 0.8 mg/dL (0.1-1.4); CALCIUM 8.2 mg/dL (8.5-10.4); CARBON DIOXIDE 27 mEq/l (22-31); CHLORIDE 102 mEq/L (97-110); CREATININE 0.7 mg/dL (0.7-1.3); GLOMERULAR FILTRATION RATE > 60; GLUCOSE 90 mg/dL (70-100); POTASSIUM 4.3 mEq/L (3.5-5.2); SODIUM 141 mEq/L (134-144); TOTAL PROTEIN 5.7 g/dL (6.3-8.2)
[2017-07-01 05:31] LABS: ADD DIFF? YES; SCAN POSITIVE
[2017-07-01 05:39] LABS: PLATELET ESTIMATE ADEQUATE (ADEQ)
[2017-07-01] MEDS ORDERED: D10W 1,000 ML IV PRN (10:16)
--- NOTE | 2017-07-01 10:16 | SOAPPROG ---
SOAP Progress Note Assessment/Plan: Assessment: s/p SB resection, stable. Cont NGT, IVF. Plan PICC/TPN. Plan: 06/30/17 11:22 07/01/17 10:14 Subjective: Patient feels better, no N/V. Pain controlled. No flatus/BM. Objective: Vital Signs Temp Pulse Resp BP Pulse Ox 36.9 C 102 H 16 126/80 H 91 L 07/01/17 07:14 07/01/17 07:14 07/01/17 07:14 07/01/17 07:14 07/01/17 07:14 Laboratory Results 07/01/17 04:17 07/01/17 04:17 06/30/17 07/01/17 07/02/17 05:59 05:59 05:59 Intake Total 3242 Output Total 300 775 Balance -300 2467 Alert, NAD RRR Abd sl distended but soft, inc TTP Drsg C/D/I ICD10 Worksheet Patient Problems: Problems Problem Status Onset Hiccups Acute Primary localized osteoarthritis of left hip Acute Small bowel obstruction Acute Vomiting Acute
[2017-07-01 12:07] LABS: MAGNESIUM 1.9 mg/dL (1.6-2.3)
[2017-07-01 21:48] LABS: % IMMATURE GRANULYOCYTES 0.4 % (0.0-1.1); ABSOLUTE IMMATURE GRANULOCYTES 0.03 10^3/uL (0.00-0.10); ADD DIFF? NO; ADD MORPH? NO; ADD SCAN? NO; ATYPICAL LYMPHOCYTE FLAG 50 (0-99); FRAGMENT RBC FLAG 0 (0-99); HEMATOCRIT 36.8 % (40.0-51.0); HEMOGLOBIN 12.7 g/dL (13.7-17.5); LEFT SHIFT FLG 20 (0-99); LIPEMIA HEMOLYSIS FLAG 90 (0-99); MEAN CELL HEMOGLOBIN 33.2 pg (27.9-34.1); MEAN CELL HEMOGLOBIN CONCENTR. 34.5 g/dL (32.4-36.7); MEAN CELL VOLUME 96.3 fL (81.5-99.8); MEAN PLATELET VOLUME 11.2 fL (8.7-11.7); PLATELET CLUMPS FLAG 20 (0-99); PLATELET COUNT 207 10^3/uL (150-400); RED BLOOD CELL COUNT 3.82 10^6/uL (4.40-6.38); RED CELL DISTRIBUTION WIDTH 12.2 % (11.5-15.2)
[2017-07-01 21:56] LABS: INR 1.24 (0.83-1.16); PROTIME(PATIENT) 15.8 SEC (12.0-15.0)
[2017-07-02] MEDS: HYDROmorphone HCL/NS/PF 0.4 MG/2 ML SYR IVP PRN ×3 (00:52→18:45)
[2017-07-02] MEDS: LR 1,000 ML IV SCH ×2 (00:52→11:09)
--- NOTE | 2017-07-02 05:40 | GOP ---
[f rep st] OPERATIVE REPORT DATE OF OPERATION: 06/30/2017 SURGEON: Reyes Reynoso MD ANESTHESIA: General endotracheal anesthesia. ANESTHESIOLOGIST: Mitch Alejandra MD. PREOPERATIVE DIAGNOSIS: Partial small bowel obstruction. POSTOPERATIVE DIAGNOSIS: Partial small bowel obstruction. PROCEDURE PERFORMED: Laparoscopic assisted small bowel resection. FINDINGS: Patient had inflammatory reaction with the small bowel adherent to the mesh and adjacent t issue in the left pelvis. No other lesions were identified. ESTIMATED BLOOD LOSS: 150 cc. INDICATIONS: This is a 66-year-old male who is status post laparoscopic totally extraperitoneal bila teral inguinal hernia repair 2 weeks prior. Patient had intermittent history of partial small bowel obstruction. The patient had multiple recurrences and decision was made to proceed with exploratory surgery. Risks and benefits of procedure have been discussed with the patient's family, their questi ons were answered and they wished to proceed. DESCRIPTION OF PROCEDURE: With the patient in the supine position, after induction of adequate gener al endotracheal anesthesia, the patient was prepped and draped in the standard surgical fashion. Mar stacey 0.5% was injected throughout the periumbilical area for local anesthesia. A 5 mm incision was made. The abdominal wall was elevated. Veress needle was inserted, and after noting proper pressure s, the abdomen was insufflated with carbon dioxide. A 5 mm trocar was passed. The camera followed. There was no apparent damage from trocar placement. Three more ports were placed, all 5 mm ports th roughout the lower abdomen. These were all placed under direct vision after injecting 0.5% Marcaine for local anesthesia. The abdomen was inspected. The right-sided preperitoneal mesh was without issue. The left side, how ever, had a knot of small bowel adherent to the tissues surrounding the left mesh. This was carefull y dissected using blunt dissection and sharp dissection. However, there were significant adhesions i n this area. After careful dissection, further progress could not be made without enterotomy. There fore, at this time, the decision was made to remove the left mesh as it was directly contaminated. T he small bowel was and the mesh removed without difficulty from the abdominal wall. The ep igastrics on the left side were encountered here and transected. They were clipped and divided. Due to the small bowel inflammation and enterotomy, decision was made to perform a resection. A mini-laparotomy site was made in the midline. This was done after injecting 0.5% Marcaine for loca l anesthesia. An Juan Manuel wound protector was placed. The mesh and the small bowel in question were d elivered through this mini-laparotomy site. The small bowel again appeared to be inflammatory, but w ithout mass or other lesion. There were approximately 2 separate sites of inflammation and damage to the small bowel. The resection was then performed to encompass both of these sites. The bowel prox imal and distal to these sites were brought together and a stay suture of 3-0 Vicryl placed. Enterot omies were made in the antimesenteric border and a blue load of the TREMAYNE stapler was placed. This was fired and the staple line inspected. Good hemostasis was noted. Windows were then opened in the fl sentery and the Endo-TREMAYNE stapler was then again fired to create the small bowel anastomosis. The mes entery for the resection was then clamped, divided, and ligated with 2-0 Vicryl ties. It was sent fo r permanent section. The remaining staple line was oversewn using 3-0 Vicryl in a running fashion. The area was inspected and good hemostasis noted. The anastomosis was palpated and found to be widel y patent. Tension relieving stitch was placed between the 2 anastomotic limbs with 3-0 Vicryl. The area was again inspected. No other lesions were identified. The abdomen was returned to its anatomi lars position. The remainder of the abdomen was inspected. No other lesions were noted. Good hemost asis noted throughout. The abdomen was then irrigated, aspirated with several liters of warm saline. Once the effluent returned clear, the area was inspected again. No other lesions were identified. The wound protector was removed and the fascia was closed with 0 PDS in a running fashion. The woun ds were thoroughly irrigated. The skin all sites closed with nic. Wounds sterilely dressed. Nicole blanco patient was taken to PACU in stable condition. /[id number]/MODL
[2017-07-02 06:35] LABS: % IMMATURE GRANULYOCYTES 0.8 % (0.0-1.1); ABSOLUTE IMMATURE GRANULOCYTES 0.07 10^3/uL (0.00-0.10); ADD DIFF? NO; ADD MORPH? NO; ADD SCAN? NO; ATYPICAL LYMPHOCYTE FLAG 50 (0-99); FRAGMENT RBC FLAG 0 (0-99); HEMATOCRIT 34.8 % (40.0-51.0); HEMOGLOBIN 11.9 g/dL (13.7-17.5); LEFT SHIFT FLG 10 (0-99); LIPEMIA HEMOLYSIS FLAG 90 (0-99); MEAN CELL HEMOGLOBIN 32.8 pg (27.9-34.1); MEAN CELL HEMOGLOBIN CONCENTR. 34.2 g/dL (32.4-36.7); MEAN CELL VOLUME 95.9 fL (81.5-99.8); MEAN PLATELET VOLUME 10.8 fL (8.7-11.7); PLATELET CLUMPS FLAG 0 (0-99); PLATELET COUNT 192 10^3/uL (150-400); RED BLOOD CELL COUNT 3.63 10^6/uL (4.40-6.38); RED CELL DISTRIBUTION WIDTH 11.9 % (11.5-15.2)
[2017-07-02 06:46] LABS: INR 1.18 (0.83-1.16); PROTIME(PATIENT) 15.2 SEC (12.0-15.0)
[2017-07-02 06:47] LABS: APTT 31.1 SEC (23.0-38.0)
[2017-07-02 06:50] LABS: ALANINE AMINOTRANSFERASE 39 IU/L (21-72); ALBUMIN 2.6 g/dL (3.5-5.0); ALKALINE PHOSPHATASE 54 IU/L (38-126); ANION GAP 9 mEq/L (8-16); ASPARTATE AMINOTRANSFERASE 23 IU/L (17-59); BILIRUBIN,TOTAL 0.3 mg/dL (0.1-1.4); CARBON DIOXIDE 26 mEq/l (22-31); CHLORIDE 106 mEq/L (97-110); CREATININE 0.7 mg/dL (0.7-1.3); GLOMERULAR FILTRATION RATE > 60; GLUCOSE 130 mg/dL (70-100); MAGNESIUM 2.3 mg/dL (1.6-2.3); SODIUM 141 mEq/L (134-144); TOTAL PROTEIN 5.2 g/dL (6.3-8.2)
--- NOTE | 2017-07-02 10:57 | SOAPPROG ---
SOAP Progress Note Assessment/Plan: Assessment: s/p SB resection, stable. d/c NGT, start clears. Plan: 06/30/17 11:22 07/01/17 10:14 07/02/17 10:53 Subjective: Patient feels better, no N/V. No flatus recently. Ambulating, voiding. Objective: Vital Signs Temp Pulse Resp BP Pulse Ox 36.9 C 75 16 157/91 H 90 L 07/02/17 03:43 07/02/17 03:43 07/02/17 03:43 07/02/17 03:43 07/02/17 03:43 Laboratory Results 07/02/17 06:10 07/02/17 06:10 07/01/17 07/02/17 07/03/17 05:59 05:59 05:59 Intake Total 3242 75 2336 Output Total 775 800 Balance 2467 -725 2336 PT 15.2 SEC (12.0-15.0) H 07/02/17 06:10 INR 1.18 (0.83-1.16) H 07/02/17 06:10 Alert, NAD RRR Abd soft, NTTP Inc C/D/I ICD10 Worksheet Patient Problems: Problems Problem Status Onset Hiccups Acute Primary localized osteoarthritis of left hip Acute Small bowel obstruction Acute Vomiting Acute
[2017-07-02] MEDS ORDERED: K PHOS 15 MMOL in D5W 250 ML IV ONE (12:00)
--- NOTE | 2017-07-02 13:35 | ASMTCMCOM ---
CM Note CM Note Notes: Reviewed chart regarding discharge plan, pt's progress. Pt s/p small bowel resection; per MD notes, NG tube discontinued, pt starting on clears, no N/V. Anticipate pt will likely d/c home independently w/ family support and no identified needs when stable. CM will cont to follow. Date Signed: 07/02/2017 01:35 PM Electronically Signed By:Genevieve Mon RN
[2017-07-02] MEDS: PROMETHAZINE HCL 25 MG/ML INJ IVP PRN (20:29)
[2017-07-02] MEDS: LORazepam 2 MG/ML INJ IVP SCH (20:29)
[2017-07-02] MEDS ORDERED: TPN 1 EA BAG IV SCH (21:00)
[2017-07-03 05:59] LABS: % IMMATURE GRANULYOCYTES 0.7 % (0.0-1.1); ABSOLUTE IMMATURE GRANULOCYTES 0.07 10^3/uL (0.00-0.10); ADD DIFF? NO; ADD MORPH? NO; ADD SCAN? NO; ATYPICAL LYMPHOCYTE FLAG 70 (0-99); FRAGMENT RBC FLAG 0 (0-99); HEMATOCRIT 31.6 % (40.0-51.0); HEMOGLOBIN 10.7 g/dL (13.7-17.5); LEFT SHIFT FLG 10 (0-99); LIPEMIA HEMOLYSIS FLAG 90 (0-99); MEAN CELL HEMOGLOBIN 32.1 pg (27.9-34.1); MEAN CELL HEMOGLOBIN CONCENTR. 33.9 g/dL (32.4-36.7); MEAN CELL VOLUME 94.9 fL (81.5-99.8); MEAN PLATELET VOLUME 10.9 fL (8.7-11.7); PLATELET CLUMPS FLAG 0 (0-99); PLATELET COUNT 195 10^3/uL (150-400); RED BLOOD CELL COUNT 3.33 10^6/uL (4.40-6.38); RED CELL DISTRIBUTION WIDTH 11.9 % (11.5-15.2)
[2017-07-03 06:12] LABS: INR 1.08 (0.83-1.16); PROTIME(PATIENT) 14.2 SEC (12.0-15.0)
[2017-07-03 06:17] LABS: ALANINE AMINOTRANSFERASE 37 IU/L (21-72); ALBUMIN 2.5 g/dL (3.5-5.0); ALKALINE PHOSPHATASE 52 IU/L (38-126); ANION GAP 9 mEq/L (8-16); ASPARTATE AMINOTRANSFERASE 18 IU/L (17-59); BILIRUBIN,TOTAL 0.5 mg/dL (0.1-1.4); CALCIUM 7.7 mg/dL (8.5-10.4); CARBON DIOXIDE 24 mEq/l (22-31); CHLORIDE 102 mEq/L (97-110); CREATININE 0.6 mg/dL (0.7-1.3); GLOMERULAR FILTRATION RATE > 60; GLUCOSE 104 mg/dL (70-100); MAGNESIUM 2.1 mg/dL (1.6-2.3); POTASSIUM 3.9 mEq/L (3.5-5.2); SODIUM 135 mEq/L (134-144); TOTAL PROTEIN 5.5 g/dL (6.3-8.2)
[2017-07-03 07:06] VITALS: RESP 18
[2017-07-03] MEDS ORDERED: OXYCODONE/APAP 5/325 TAB PO PRN (09:39)
--- NOTE | 2017-07-03 09:43 | SOAPPROG ---
SOAP Progress Note Assessment/Plan: Assessment: s/p SB resection, stable. Advance diet, wean TPN. PO pain meds. Plan: 06/30/17 11:22 07/01/17 10:14 07/02/17 10:53 07/03/17 09:41 Subjective: Patient feels better, joselyn po, ambulating, voiding. + BM. Objective: Vital Signs Temp Pulse Resp BP Pulse Ox 36.9 C 86 18 146/87 H 93 07/03/17 07:04 07/03/17 07:04 07/03/17 07:04 07/03/17 07:04 07/03/17 07:04 Laboratory Results 07/03/17 05:45 07/03/17 05:45 07/02/17 07/03/17 07/04/17 05:59 05:59 05:59 Intake Total 75 3305 Output Total 800 900 Balance -725 2405 PT 14.2 SEC (12.0-15.0) 07/03/17 05:45 INR 1.08 (0.83-1.16) 07/03/17 05:45 Alert, NAD RRR Abd soft, NTTP Inc C/D/I ICD10 Worksheet Patient Problems: Problems Problem Status Onset Hiccups Acute Primary localized osteoarthritis of left hip Acute Small bowel obstruction Acute Vomiting Acute
[2017-07-03] MEDS: TPN 1 EA BAG IV SCH ×2 (15:10→15:11)
[2017-07-03 16:15] VITALS: BP 147/85; PULSE 91; TEMP 98.3; O2SAT 95
--- NOTE | 2017-07-04 14:47 | ASDISCHSUM ---
Discharge Information Plan Status:Home with No Needs Medically Cleared to Leave:07/02/2017 Discharge Date:07/03/2017 05:21 PM CM D/C Disposition:Home, Routine, Self-Care ADT D/C Disposition:Home, Routine, Self-Care Projected Discharge Date:07/03/2017 12:00 AM Transportation at D/C: Discharge Delay Reason: Follow-Up Date:07/03/2017 12:00 AM Discharge Slot: Final Diagnosis: Placement Information Patient Contact Information Contact Name:YANA Relationship: Address:[address] Work Phone: City:[place] Alternate Phone: State/Zip Code:[place] [address] Email: Financial Information Financial Class: Primary Plan Desc:MEDICARE INPATIENT Primary Plan Number:[id number] Secondary Plan Desc:[employer]/MDR SUPPLEMENT Secondary Plan Number:[id number] Assessment Information [facility] CM Progress Note CM Note CM Note Notes: Pt admitted for recurrant PSBO. Per progress notes, pt will go to surgery later today. Pt lives at home w/. DC needs not clear at this time; CM will follow. Date Signed: 06/30/2017 12:04 PM Electronically Signed By:Mahi William RN [facility] CM Progress Note CM Note CM Note Notes: Reviewed chart regarding discharge plan, pt's progress. Pt s/p small bowel resection; per MD notes, NG tube discontinued, pt starting on clears, no N/V. Anticipate pt will likely d/c home independently w/ family support and no identified needs when stable. CM will cont to follow. Date Signed: 07/02/2017 01:35 PM Electronically Signed By:Genevieve Mon RN Intervention Information
== END 2017-07-03 17:21 | disposition home or self-care (01) | DRG 330 ==
LOC: F3E 20:33
PROVIDERS: ADMIT Surgery; ATTEND Surgery
PROC: 0DT80ZZ Resection of Small Intestine, Open Approach (ICD-10-PCS; principal; 2017-06-30 17:45)
PROC: 0WPG0JZ Removal of Synthetic Substitute from Peritoneal Cavity, Open Approach (ICD-10-PCS; principal; 2017-06-30 17:45)
PROC: 02HV33Z Insertion of Infusion Device into Superior Vena Cava, Percutaneous Approach (ICD-10-PCS; 2017-07-01)
DX: K56.600 Partial intestinal obstruction, unspecified as to cause (principal); T85.79XA Infection and inflammatory reaction due to other internal prosthetic devices, implants and grafts, initial encounter; Z96.643 Presence of artificial hip joint, bilateral; Z87.891 Personal history of nicotine dependence
CPT/HCPCS: C1751; J0697; J1100; J1170; J2001; J2060; J2250; J2370; J2405; J2550; J2704; J2710; J3010

== ENCOUNTER 2017-10-06 11:15 | Inpatient (IN) | payer OTHER, MEDICARE ==
--- NOTE | 2017-10-06 11:26 | EDPHY ---
H & P Stated Complaint: Constipated intermittently ~3mo since surg;noticed blood in stool today Source: Patient, Family () Exam Limitations: No limitations - Personal History Current Tetanus Diphtheria and Acellular Pertussis (TDAP): Yes Tetanus Vaccine Date: 3 yrs ago - Medical/Surgical History Hx Asthma: No Hx Chronic Respiratory Disease: No Hx Diabetes: No Hx Cardiac Disease: No Hx Renal Disease: No Hx Cirrhosis: No Hx Alcoholism: No Hx HIV/AIDS: No Hx Splenectomy or Spleen Trauma: No Other PMH: seasonal allergies/bilat inguinal hernia surgery, hip surgeries, melanoma w/ surgery. bowel resection Jun 2017 - Social History Smoking Status: Former smoker Time Seen by Provider: 10/06/17 11:25 HPI/ROS: HPI: This is a 66-year-old male who presents with Chief Complaint: Constipated intermittently ~3mo since surgery;noticed blood in stool today Location: GI Quality: Bleeding Duration: 1 week Signs and Symptoms: no fever, no nausea, no vomiting, no hematemesis, + blood in stool, no abdominal bloating, no diarrhea, no back pain, no urinary symptoms , no testicular/groin pain, no indigestion, no chest pain, no shortness of breath Timing: Daily Severity: Moderate Context: Patient presents with complaints of constipation since his bowel resection surgery in June of 2017. Chart review shows that he had bilateral hernia repair in May. Then admitted to the hospital for bowel obstruction managed with NG tube and bowel decompression. Few days later he was readmitted to the hospital for obstruction again and underwent bowel resection surgery by Dr. Reynoso. Patient reports that since his Jones section surgery that he has had troubles with constipation. Per Dr. Del Cid his primary care provider he has increased his fluid intake and takes Metamucil daily. Over the last week, patient reports that he has noticed some blood in his stool. This morning he had 3 episodes of bloody diarrhea and felt lightheaded while he was in the shower when he was using the school EG to clean the shower. Denies chest pain/ shortness of breath/syncope. Patient has a history of external hemorrhoid but denies any at this time. Does not take any blood thinners. Reports that he was passing flatus yesterday but has not passed any flatus today. Reports that he feels hungry at this time. Ate a protein shake for breakfast without difficulty. Modifying Factors: None Comment: ROS: see HPI Constitutional: No fever, no chills, no weight loss Eyes: No blurred vision Respiratory: No shortness of breath, no cough Cardiovascular: No chest pain, no palpitations Gastrointestinal: No nausea, no vomiting, no diarrhea, no hematemesis,+ blood in stool Genitourinary: No dysuria, no blood in urine Extremities: No myalgias, no edema Neurologic: No weakness, no numbness Skin: No rashes, no petechiae Hematologic: No bruising, no bleeding MEDICAL/SURGICAL/SOCIAL HISTORY: Medical/Surgical history: seasonal allergies/bilateral inguinal hernia surgery , hip surgeries, melanoma w/ surgery bowel resection Jun 2017 Social history: . Employed. CONSTITUTIONAL: Polite and cooperative adult white male, awake and alert, no obvious distress HEENT: Atraumatic and normocephalic, PERRL, EOMI. Tympanic membranes clear. Oropharynx clear, no exudate and moist pink mucosa. Airway patent. No lymphadenopathy. No meningismus. Cardiovascular: Normal S1/S2, regular rate, regular rhythm, without murmur rub or gallop. PULMONARY/CHEST: Symmetrical and nontender. Clear to auscultation bilaterally. Good air movement. No accessory muscle usage. ABDOMEN: Soft, nondistended, nontender, no rebound, no guarding, no peritoneal signs, no masses or organomegaly. No CVAT. Normoactive bowel sounds heard x4 quadrants. RECTAL: Good sphincter tone, dark red stool in vault, no external hemorrhoids, no fissures, no palpable masses, guaiac positive EXTREMITIES: 2/2 pulses, strength 5/5, no deformities, no clubbing, no cyanosis or edema. NEUROLOGICAL: no focal neuro deficits. GCS 15. SKIN: Warm and dry, pallor no erythema. no rash. Good capillary refill. (Devi,Terra) Constitutional: Initial Vital Signs Temperature (C) 36.7 C 10/06/17 11:17 Heart Rate 94 10/06/17 11:17 Respiratory Rate 18 10/06/17 11:17 Blood Pressure 120/75 10/06/17 11:17 O2 Sat (%) 97 10/06/17 11:17 O2 Delivery Mode Room Air Allergies/Adverse Reactions: No Known Allergies Allergy (Verified 10/06/17 11:17) Home Medications: Medication Instructions Recorded NK [No Known Home Meds] 10/06/17 Medical Decision Making ED Course/Re-evaluation: Labs, IV fluids, CT abdomen and pelvis scan ordered Given 1 L normal saline. Vital signs reviewed upon arrival in stable. No signs of syncope/chest pain/ shortness of breath. Abdomen soft and nontender. 1235: Labs reviewed in H&H is 6.7/20.3. In July hemoglobin was 14.1. Transfuse packed red blood cells 2 units ordered ED decision to consult for admission; Dr. Devlin spoke with hospitalist as well as Gastroenterology. CT abdomen and pelvis scan pending at time of consult. 1330: Called by radiologist who advised that CT abdomen and pelvis scan shows no acute abdominal process but does show moderate stool burden. This patient was seen under the supervision of my secondary supervising physician. I evaluated care for this patient independently. Discussed this patient with Dr. Devlin who did not see the patient. (Mary Quinonez) Differential Diagnosis: Lower GI bleeding including but not limited to diverticulosis, tumor, AVM, hemorrhoid and anal fissure. (Mary Quinonez) Other Provider: PHYSICIAN DOCUMENTATION: The patient was evaluated and managed by the Physician Plant Security Guard and myself. I have reviewed the chart and agree with the findings and plan of care as documented. In addition, I examined the patient myself at 1314. History confirmed as bloody diarrhea today, no abdominal pain. Physical findings as follows: abdomen soft nontender. Hematocrit 20. Likely acute lower GI bleed. Discussed with Dr. Sparks at 12:26 p.m., admission, discussed with Dr. Ferrer Transfusion and step-down. I am the secondary supervising physician. (Uriel Devlin) - Data Points Laboratory Results: Laboratory Results 10/06/17 12:10 10/06/17 12:10 10/06/17 10/06/17 10/06/17 12:10 12:10 11:40 WBC 6.78 10^3/uL 10^3/uL (3.80-9.50) RBC 2.11 10^6/uL L 10^6/uL (4.40-6.38) Hgb 6.7 g/dL L g/dL (13.7-17.5) Hct 20.3 % L % (40.0-51.0) MCV 96.2 fL fL (81.5-99.8) MCH 31.8 pg pg (27.9-34.1) MCHC 33.0 g/dL g/dL (32.4-36.7) RDW 12.9 % % (11.5-15.2) Plt Count 134 10^3/uL L 10^3/uL (150-400) MPV 10.8 fL fL (8.7-11.7) Neut % (Auto) 72.0 % % (39.3-74.2) Lymph % (Auto) 17.8 % % (15.0-45.0) Sevier % (Auto) 8.6 % % (4.5-13.0) Eos % (Auto) 1.0 % % (0.6-7.6) Baso % (Auto) 0.3 % % (0.3-1.7) Nucleat RBC Rel Count 0.0 % % (0.0-0.2) Absolute Neuts (auto) 4.88 10^3/uL 10^3/uL (1.70-6.50) Absolute Lymphs (auto) 1.21 10^3/uL 10^3/uL (1.00-3.00) Absolute Monos (auto) 0.58 10^3/uL 10^3/uL (0.30-0.80) Absolute Eos (auto) 0.07 10^3/uL 10^3/uL (0.03-0.40) Absolute Basos (auto) 0.02 10^3/uL 10^3/uL (0.02-0.10) Absolute Nucleated RBC 0.00 10^3/uL 10^3/uL (0-0.01) Immature Gran % 0.3 % % (0.0-1.1) Immature Gran # 0.02 10^3/uL 10^3/uL (0.00-0.10) Platelet Estimate DECREASED L (ADEQ) Polychromasia 1+ H Microcytic Cells 1+ H Spherocytes 1+ H Smear Review By Pending Sodium 137 mEq/L mEq/L (135-145) Potassium 4.4 mEq/L mEq/L (3.5-5.2) Chloride 108 mEq/L mEq/L (97-110) Carbon Dioxide 23 mEq/l mEq/l (22-31) Anion Gap 6 mEq/L L mEq/L (8-16) BUN 27 mg/dL H mg/dL (7-23) Creatinine 0.7 mg/dL mg/dL (0.7-1.3) Estimated GFR > 60 Glucose 99 mg/dL mg/dL (70-100) Calcium 7.7 mg/dL L mg/dL (8.5-10.4) Total Bilirubin 0.2 mg/dL mg/dL (0.1-1.4) Conjugated Bilirubin 0.2 mg/dL mg/dL (0.0-0.5) Unconjugated Bilirubin 0.0 mg/dL mg/dL (0.0-1.1) AST 18 IU/L IU/L (17-59) ALT 34 IU/L IU/L (21-72) Alkaline Phosphatase 35 IU/L L IU/L (38-126) Total Protein 5.3 g/dL L g/dL (6.3-8.2) Albumin 2.9 g/dL L g/dL (3.5-5.0) TSH 0.972 uIU/mL uIU/mL (0.465-4.680) Stool Occult Bld Scrn POSITIVE H (NEGATIVE) Medications Given: Discontinued Medications Sodium Chloride (Ns) 1,000 mls @ 0 mls/hr IV EDNOW ONE; Wide Open PRN Reason: Protocol Stop: 10/06/17 11:45 Last Admin: 10/06/17 12:07 Dose: 1,000 mls Departure - Departure Disposition: [facility] In[facility] Acute Clinical Impression: Normocytic anemia due to blood loss, Lower GI bleeding Condition: Fair
[2017-10-06] MEDS ORDERED: MAGNESIUM CITRATE 300 ML BOTTLE PO ONE ×2 (11:30→21:00)
[2017-10-06] MEDS ORDERED: NS 1,000 ML IV ONE (11:44)
[2017-10-06 12:21] LABS: PLATELET COUNT 134 10^3/uL (150-400)
[2017-10-06] MEDS ORDERED: IOPAMIDOL (ISOVUE-300) 100 ML BTL ONE (12:46)
[2017-10-06] MEDS ORDERED: ONDANSETRON 4 MG/2 ML VIAL IVP PRN (14:28)
[2017-10-06] MEDS ORDERED: ONDANSETRON DISINTEGRATING 4 MG TAB PO PRN (14:28)
[2017-10-06] MEDS ORDERED: ACETAMINOPHEN 325 MG TAB PO PRN (14:28)
[2017-10-06] MEDS ORDERED: NS 1,000 ML IV SCH (14:30)
[2017-10-06] MEDS ORDERED: CYCLOBENZAPRINE 10 MG TAB PO PRN (14:40)
[2017-10-06] MEDS ORDERED: FAMCICLOVIR 250 MG TAB PO PRN (14:40)
--- NOTE | 2017-10-06 15:07 | GHP ---
[f rep st] HISTORY AND PHYSICAL DATE OF ADMISSION: 10/06/2017 CHIEF COMPLAINT: Bloody stool. HISTORY OF PRESENT ILLNESS: This is a 66-year-old man who was previously healthy, underwent a hernia operation a few months ago by Dr. Reynoso. This was complicated by small bowel obstruction due to a loop of small bowel being adhered to the hernia mesh. This required a small-bowel resection, as wel l as mesh removal. That occurred in June. Since then, he has had ongoing problems with constipa tion. He has been recommended by his primary care physician to take Metamucil and drink significant water. He has done this. A few days ago he saw a small amount of blood in his stool. He did not th ink much of it at the time. He has continued to be very active at work with no increasing dyspnea on exertion. The day of presentation, he had 3 large bloody bowel movements. Describes these as a lit tle bit of formed stool with significant blood. Since then, he has felt lightheaded. He was awakene d this morning by the sensation of his heart beating very loudly. He has not had any nausea, vomitin g, or hematemesis since his surgery, including today. He has had colonoscopies every 5 years. His l ast was 2 years ago. He has never been told of anything abnormal. These have been done by Dr. Thierry blanco at the [facility]. Evaluation in the emergency department notable for a hemoglobin of 6.7. PAST MEDICAL/SURGICAL HISTORY: 1. Small bowel resection, as above. 2. Bilateral hernia repair. 3. Bilateral FREDY. MEDICATIONS: Please see medication reconciliation. ALLERGIES: No known drug allergies. FAMILY HISTORY: Reviewed and noncontributory. SOCIAL HISTORY: He is an avid skier. He works at [employer]. REVIEW OF SYSTEMS: 10-point review of systems is conducted and is negative except per HPI. PHYSICAL EXAMINATION: VITAL SIGNS: Blood pressure is 120/80, heart rate 89, respiration rate 18, sa tting 96% on room air, temperature 36.7. GENERAL: The patient is a pleasant man, who is resting com fortably. He looks mildly pale, otherwise in no acute distress. HEENT: Shows him to be normocephal ic, atraumatic. CARDIOVASCULAR: Regular rate and rhythm. There are no murmurs, rubs, or gallops. PULMONARY: Lungs clear to auscultation bilaterally. He is in no respiratory distress. ABDOMEN: So ft. Very mild diffuse tenderness to palpation. No masses appreciated. SKIN: Shows no rash. : Shows no Erazo. NEUROLOGIC: Shows him to be alert and oriented x3. He is moving all extremities. PSYCHIATRIC: Shows normal mood and affect. LABORATORIES: Hemoglobin is 6.7, platelets are 134. FOBT is positive. DATA: 1. I reviewed his chart. 2. I have discussed this with Dr. Devlin in the emergency department. 3. I reviewed his abdominal CT scan. It is notable for constipation. No evidence for small bowel o bstruction. IMPRESSION AND PLAN: 1. Lower gastrointestinal bleed: Gastroenterology has been consulted. Potentially may be due to he morrhoids. Certainly other things are on the differential including diverticulosis, complication fro m his small bowel resection, the anastomotic site, arteriovenous malformation. We will make him n.p. o. pending gastrointestinal evaluation. He may need to be prepped and scoped tomorrow. 2. Acute blood loss anemia: He is getting transfused 2 units. He is currently hemodynamically stab le. 3. Recent small bowel resection by Dr. Reynoso: Does not appear to be surgical at this point, will involve Dr. Reynoso if necessary. /[id number]/MODL
[2017-10-06 17:48] LABS: INR 1.23 (0.83-1.16); PROTIME(PATIENT) 15.7 SEC (12.0-15.0)
[2017-10-06] MEDS: PANTOPRAZOLE SODIUM 40 MG VIAL IVP SCH ×2 (17:54→20:45)
[2017-10-06] MEDS ORDERED: PEG 3350/NA SULF,BICARB,CL/KCL (GAVILYTE-G) 4000 ML BTL PO ONE (18:00)
--- NOTE | 2017-10-06 20:53 | GCON ---
[f rep st] CONSULTATION INPATIENT CONSULTATION REFERRING PHYSICIAN: Jose Luis Juárez MD REASON FOR CONSULTATION: Bloody stool. CHIEF COMPLAINT: Bloody stool. HISTORY OF PRESENT ILLNESS: Briefly, the patient is a very pleasant 66-year- old male who was admitted to the hospital with feelings of weakness, fatigue, and bloody stool. He reports he was in his usual state of health, essentially, until yesterday. He had a bloody bowel movement. He had a subsequent bloody bowel movement later in the day. He called his primary care doctor, who was concerned about the possibility of hemorrhoids in the setting of constipation. This morning, however, he had 3, very large, bloody bowel movements. Soon after this, he reported that he was feeling somewhat diaphoretic, with some weakness. He felt a sensation of palpitations. His bowel movements were all frankly bloody. He presented to the emergency room with those complaints. He reports he has been having colonoscopies regularly and the last 1 was 2 years ago without anything discovered. He reports he recently underwent surgery, with a partial small bowel resection, and has had constipation since that time. He reports he has had no bleeding, or discomfort. He has been eating well without nausea or vomiting. PAST MEDICAL HISTORY: Includes small bowel resection, idiopathic. Bilateral hernia repair, bilateral hip replacement. MEDICATIONS: As an outpatient include no known medicines. ALLERGIES: None. PAST MEDICAL HISTORY: Includes hip replacement, bowel resection and seasonal allergies. FAMILY HISTORY: Negative for colon cancer. SOCIAL HISTORY: He does not smoke cigarettes, but was a former smoker. REVIEW OF SYSTEMS: A complete 14-point review was undertaken with the patient and is negative except for those details described in the history of present illness. PHYSICAL EXAM: GENERAL: This is a well-developed male, in no apparent distress. HEENT: His pupils are equal, round, reactive to light and accommodation. His sclerae are nonicteric. His oropharynx is clear. NECK: Supple without lymphadenopathy. HEART: Regular without murmur. ABDOMEN: Soft , nontender. He has normoactive bowel sounds. EXTREMITIES: Free of cyanosis, clubbing, edema. PSYCH: Normal mood and affect. MUSCULOSKELETAL: His joints show no arthritis. LABORATORY: Testing shows a white count of 6.7, hemoglobin of 6.7, hematocrit of 20.3, platelet count of 134. INR of 1.23. Sodium of 137, potassium of 4.4, chloride of 108, bicarb of 23, BUN of 27, creatinine of 0.7. AST, ALT, and bilirubin are normal. Albumin slightly low at 2.9. IMPRESSION/RECOMMENDATIONS: Mr. Steele is admitted to the hospital with symptomatic anemia. The etiology of his anemia is uncertain. He does report several large volume bloody stools recently. Lower GI bleeding, therefore, is on the differential. Differential diagnosis could also include upper intestinal sources of bleeding or bleeding from his recently done small-bowel anastomosis. At this point, I recommend he remain n.p.o. on proton pump inhibitor. Will arrange for upper endoscopy and colonoscopy to occur tomorrow after a laxative purge. /[id number]/MODL MTDD
[2017-10-07] MEDS ORDERED: PEG 3350/NA SULF,BICARB,CL/KCL (GAVILYTE-G) 4000 ML BTL PO ONE (05:00)
[2017-10-07] MEDS: PANTOPRAZOLE SODIUM 40 MG VIAL IVP SCH (08:28)
--- NOTE | 2017-10-07 09:15 | PDMN ---
Medical Necessity Medical necessity: est los>2mn for LGIB, w/multiple large volume bloody stools, r/o diverticulitis vs complication of recent bowel resection vs arteriovenous malformation, and acute blood loss anemia w/h&h 6.7/20.3; admit for GI consult w /upper and lower endoscopies, IV PPI, and transfusions per protocol; hx recent hernia repair with complication of small bowel obstruction w/bowel adhered to mesh and subsequent resection and removal of mesh; per order and H&P 10/06/17
--- NOTE | 2017-10-07 12:11 | ASMTCMCOM ---
CM Note CM Note Notes: Patient case discussed in rounds. 66 year old male admitted via ED with GI bleed. For upper and lower endoscopes today, no current needs identified. CM available should needs arise. Date Signed: 10/07/2017 12:10 PM Electronically Signed By:Diane Buchanan RN
--- NOTE | 2017-10-07 13:26 | PDANEPAE ---
ANE Past Medical History - Cardiovascular History Hx Hypertension: No Hx Arrhythmias: No Hx Chest Pain: No Hx Coronary Artery / Peripheral Vascular Disease: No Hx CHF / Valvular Disease: No Hx Palpitations: No - Pulmonary History Hx COPD: No Hx Asthma/Reactive Airway Disease: No Hx Recent Upper Respiratory Infection: No Hx Oxygen in Use at Home: No Hx Sleep Apnea: No Sleep Apnea Screening Result - Last Documented: Negative - Neurologic History Hx Cerebrovascular Accident: No Hx Seizures: No Hx Dementia: No - Endocrine History Hx Diabetes: No Hypothyroid: No Hyperthyroid: No Obesity: no - Renal History Hx Renal Disorders: No - Liver History Hx Hepatic Disorders: No - Neurological & Psychiatric Hx Hx Neurological and Psychiatric Disorders: No - Cancer History Hx Cancer: Yes Cancer History Comment: MELANOMA L FOREARM - Congenital Disorder History Hx Congenital Disorders: No - GI History GERD: no Hx Gastrointestinal Disorders: No - Other Health History Other Health History: NEG - Chronic Pain History Chronic Pain: No - Surgical History Prior Surgeries: R FREDY. MELANOMA L ARM. COLONOSCOPY ANE Review of Systems Review of Systems: - Exercise capacity Exercise capacity: >=4 METS ANE Patient History - Allergies Allergies/Adverse Reactions: No Known Allergies Allergy (Verified 10/06/17 11:17) - Home Medications Home Medications: Acetaminophen/ASA/Caffeine [Excedrin Tablet (*)] 1 each PO DAILY PRN 10/06/17 [ Last Taken Unknown] Ascorbic Acid [Vitamin C 500 mg (*)] 500 mg PO DAILY 10/06/17 [Last Taken Unknown] Cholecalciferol Vit D3 [Vitamin D3 (*)] 1,000 units PO DAILY 10/06/17 [Last Taken Unknown] Cyclobenzaprine [Flexeril 10 MG (*)] 10 mg PO DAILY PRN 10/06/17 [Last Taken 3 Days Ago ~10/03/17] Famciclovir [Famvir 250 MG (*)] 250 mg PO DAILY PRN 10/06/17 [Last Taken Unknown ] Herbals/Supplements -Info Only 1 ea PO DAILY 10/06/17 [Last Taken Unknown] Ibuprofen [Motrin (*)] 400 mg PO TID PRN 10/06/17 [Last Taken 10/05/17 21:00] Multivitamins [Multivitamin (*)] 1 each PO DAILY 10/06/17 [Last Taken Unknown] Clayton-3 Fatty Acids [Fish Oil 1000 mg (*)] 1,000 mg PO DAILY 10/06/17 [Last Taken Unknown] - NPO status NPO Since - Liquids (Date): 10/07/17 NPO Since - Liquids (Time): 07:00 NPO Since - Solids (Date): 10/06/17 - Anes Hx Anes Hx: post operative nausea and vomiting - Smoking Hx Smoking Status: Former smoker Marijuana use: No - Family Anes Hx Family Anes Hx: neg - N/A ANE Labs/Vital Signs - Labs Result Diagrams: 10/07/17 08:30 10/07/17 03:45 - Vital Signs Blood Pressure: 117/63 Heart Rate: 73 Respiratory Rate: 23 O2 Sat (%): 100 Height: 170.18 cm Weight: 71.214 kg ANE Physical Exam - Airway Neck exam: FROM Mallampati Score: Class 1 Mouth exam: normal dental/mouth exam - Pulmonary Pulmonary: no respiratory distress, no rales or rhonchi, clear to auscultation - Cardiovascular Cardiovascular: regular rate and rhythym - ASA Status ASA Status: II ANE Anesthesia Plan Anesthesia Plan: MAC Total IV Anesthesia: Yes
[2017-10-07] MEDS ORDERED: PROPOFOL/EMULSION 500 MG/50 ML BOTTLE IV ONE (13:31)
[2017-10-07] MEDS ORDERED: NALOXONE HCL 0.4 MG/ML INJ IVP PRN (13:53)
[2017-10-07] MEDS ORDERED: epHEDrine SULFATE 10 MG/ML SYR IVP PRN (13:53)
[2017-10-07] MEDS ORDERED: ONDANSETRON 4 MG/2 ML VIAL IVP PRN (13:53)
[2017-10-07] MEDS ORDERED: ACETAMINOPHEN 500 MG TAB PO PRN (13:53)
[2017-10-07] MEDS ORDERED: PROMETHAZINE HCL 25 MG/ML INJ IVP PRN (13:53)
[2017-10-07] MEDS ORDERED: HYDROCODONE/APAP 5/325 TAB PO PRN (13:53)
[2017-10-07] MEDS ORDERED: LR 500 ML IV PRN (13:53)
[2017-10-07] MEDS ORDERED: PHENYLEPHRINE HCL 100 MCG/ML SYR IVP PRN (13:53)
[2017-10-07] MEDS ORDERED: PROPOFOL 200 MG/20 ML VIAL ONE (14:19)
--- NOTE | 2017-10-07 14:54 | POSTANESTH ---
Post Anesthetic Evaluation Cardiovascular Status: Normal, Stable Respiratory Status: Normal, Stable Level of Consciousness/Mental Status: Can Participate in Eval Pain Control: Adequate, Prn Tx Ordered Nausea/Vomiting Control: Adequate, Prn Tx Ordered Complications Possibly Related to Anesthesia: None Noted
--- NOTE | 2017-10-07 15:14 | GIREPORT ---
[facility] Surgical Services - Endoscopy Department Patient Name: Alexis Steele Procedure Date: 10/07/2017 1:18 PM Patient Type: Inpatient Attending MD/ ER Physician: Keron Ferrer MD Procedure: Upper GI endoscopy Indications: Melena Providers: Keron Ferrer MD Medicines: Sedation Administered by an Anesthesia Professional Complications: No immediate complications. Description of Procedure: After obtaining informed consent, the endoscope was passed under direct vision. Throughout the procedure, the patient's blood pressure, pulse, and oxygen saturations were monitored continuously. The Endoscope was intro duced through the mouth, and advanced to the third part of duodenum. The uppe r GI endoscopy was accomplished without difficulty. The patient tolerated th e procedure well. Findings: The examined esophagus was normal. The entire examined stomach was normal. The examined duodenum was normal. Estimated Blood Loss: Estimated blood loss: none. Post Op Diagnosis: - Normal esophagus. - Normal stomach. - Normal examined duodenum. - No specimens collected. Recommendation: - Perform a colonoscopy today. Attending Participation: I personally performed the entire procedure. Keron Ferrer MD Keron Ferrer MD 10/07/2017 3:14:11 PM This report has been signed electronicallyDaus Nabil MD Number of Addenda: 0 Note Initiated On: 10/07/2017 1:18 PM Total Procedure Duration Time 0 hours 53 minutes 24 seconds [email or web address]
--- NOTE | 2017-10-07 15:16 | GCON ---
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 That procedure was without complication. He did require mesh at the time, but developed a bowel obst ruction subsequent to that, and required a small bowel resection in June 2017. A couple weeks af ter that procedure, he did develop constipation that was quite difficult to manage, and then in the l ast couple of days, started noticing small amounts of blood in his stool and then had large bloody edmundo wel movements x3, associated with lightheadedness and weakness, so came to the emergency department. He was found to have a hemoglobin of 7, though his blood pressure and heart rate were relatively sta ble. He was admitted to the floor with probable GI bleed, was seen by GI and is to undergo colonosco py and endoscopy today. He also reports taking a fair amount of nonsteroidal anti-inflammatory medic ations on a fairly regular basis. He does drink alcohol of 1 beer per day on most days, and he may h ave 1 or 2 on the weekends, but no alcohol-related illnesses. He has no known history of peptic ulce r disease or other GI issues in the past, and no known liver disease. REVIEW OF SYSTEMS: Otherwise negative. PAST MEDICAL HISTORY: Includes remote hip arthroplasty. Bowel surgery and hernia repair as describe d above. SOCIAL HISTORY: He is a former smoker. The alcohol as I described. No IV drug use. FAMILY HISTORY: Noncontributory at this time. CURRENT MEDICATIONS: Include Tylenol, Flexeril, Zofran, Protonix, Phenergan. PHYSICAL EXAM: VITAL SIGNS: He had a blood pressure 117/63, heart rate 73, respirations 23, oxygen saturation 100% on room air. GENERAL: He is very pleasant man in no apparent distress. Able to spe ak in full sentences without using accessory muscles for breathing. HEENT: Pupils equally round and reactive to light, nonicteric and noninjected. Mucous membranes moist without erythema or exudate. NECK: Supple, without adenopathy or jugular vein distention. LUNGS: Breath sounds were clear to a uscultation bilaterally without wheezes, rubs or rales. HEART: Regular rate and rhythm without murm urs, rubs, gallops. ABDOMEN: Soft, nontender, nondistended without hepatosplenomegaly. No palpable masses. No signs of liver disease. No rebound, no guarding, with normoactive bowel tones. EXTREMI TIES: No clubbing, cyanosis, or edema. NEUROLOGIC: Nonfocal, including cranial nerves and deep ten don reflexes. SKIN: Warm and dry, without evidence of rash. OBJECTIVE DATA: Includes a white count of 6.78, hematocrit of 20.3, hemoglobin 6.7, platelets of 134 . INR was 1.23. Basic metabolic panel was unremarkable save for a BUN of 27. LFTs were normal exce pt for an alkaline phosphatase of 35. Stool Hemoccult was positive. ASSESSMENT/PLAN: 1. Probable gastrointestinal bleed. It sounds upper to me, but certainly could be more small bowel, particularly given his recent surgery. Not mentioned above was a CT scan of his belly that apparent ly was quite benign. He has had a colonoscopy a couple years ago that was normal, so that malignancy seems highly unlikely to me. In either case, Gastroenterology is managing this problem. His hemody namics appear to be stable at this time. 2. Anemia. He did get 2 units of blood. He has tolerated this well and we will follow with serial hematocrits to consider additional transfusion as necessary. In addition, I did primary counselor him about al cohol and non-steroidal anti-inflammatory drugs, and its effect on gastrointestinal tract. /[id number]/MODL
--- NOTE | 2017-10-07 15:33 | HOSPPROG ---
Hospitalist Progress Note Assessment/Plan: # GIB - no clear source identified on EGD and colonoscopy - possibly recent anastomosis from small bowel resection - could consider tagged RBC scan or IR for localization - stop protonix # ABLA - continue to trend H/H - transfuse if necessary # recent small bowel resection and mesh removal by Dr Reynoso Subjective: s/p colonoscopy and EGD today Objective: Vital Signs Temp Pulse Resp BP Pulse Ox 36.2 C 73 23 H 117/63 100 10/07/17 15:20 10/07/17 13:27 10/07/17 13:27 10/07/17 13:27 10/07/17 13:27 Laboratory Results 10/07/17 08:30 10/07/17 03:45 10/06/17 10/07/17 10/08/17 05:59 05:59 05:59 Intake Total 2989 1350 Output Total 800 0 Balance 2189 1350 PT 15.7 SEC (12.0-15.0) H 10/06/17 17:15 INR 1.23 (0.83-1.16) H 10/06/17 17:15 reviewed EGD note high risk - Physical Exam Constitutional: no apparent distress, appears nourished, other (pale) Eyes: anicteric sclera Ears, Nose, Mouth, Throat: hearing normal Cardiovascular: No edema Respiratory: no respiratory distress Gastrointestinal: No distension Genitourinary: No caballero in urethra Skin: warm Musculoskeletal: full muscle strength Neurologic: AAOx3 Psychiatric: not anxious ICD10 Worksheet Patient Problems: Problems Problem Status Onset Primary localized osteoarthritis of left hip Acute Hiccups Acute Vomiting Acute Small bowel obstruction Acute Normocytic anemia due to blood loss Acute Lower GI bleeding Acute
--- NOTE | 2017-10-07 15:48 | GIREPORT ---
[facility] Surgical Services - Endoscopy Department Patient Name: Alexis Steele Procedure Date: 10/07/2017 1:18 PM Patient Type: Inpatient Attending MD/ ER Physician: Keron Ferrer MD Procedure: Colonoscopy Indications: Melena, Acute post hemorrhagic anemia Providers: Keron Ferrer MD Medicines: Sedation Administered by an Anesthesia Professional Complications: No immediate complications. Description of Procedure: After obtaining informed consent, the scope was passed under direct vis ion. Throughout the procedure, the patient's blood pressure, pulse, and oxyg en saturations were monitored continuously. The Colonoscope with irrigatio n channel was introduced through the anus and advanced to the cecum, identified by appendiceal orifice and ileocecal valve. The colonoscopy was performed without difficulty. The colonoscopy was technically difficult and complex due to significant looping and a tortuous colon. Successful completion of the procedure was aided by changing the patient to a supi ne position, changing the patient to a prone position, using manual pressu re, withdrawing and reinserting the scope, changing endoscopes, withdrawing the scope and replacing with the adult endoscope, straightening and shorten ing the scope to obtain bowel loop reduction and applying abdominal pressur e. Findings: One 8 mm submucosal nodule was found appendiceal orifice. Biopsies were taken with a cold forceps for histology. The exam was otherwise without abnormality. Estimated Blood Loss: Estimated blood loss: none. Post Op Diagnosis: - Submucosal nodule at the appendiceal orifice. Biopsied. - The examination was otherwise normal. Recommendation: - Return patient to [facility] for ongoing care. - Advance diet as tolerated. - No clear source of bleeding. - Suspect small bowel source, although self limited upper of lower sour ce is possible. - No fresh blood. - Cecal/Appendiceal nodul eis likely incidental - bx pending. - If has recurrent bleeding, recommend Tagged Cell scan or IR intervent ion. - If bleeding does not recur (likely) will plan outpatient capsule endo scopy. - Continue to follow vitals, Hgb, and stool outpt. Attending Participation: I personally performed the entire procedure. Keron Ferrer MD Keron Ferrer MD 10/07/2017 3:48:10 PM This report has been signed electronicallyKeron Ferrer MD Number of Addenda: 0 Note Initiated On: 10/07/2017 1:18 PM [email or web address]}
[2017-10-08 08:53] VITALS: BP 119/80; PULSE 72; RESP 12; TEMP 97.4; O2SAT 98
--- NOTE | 2017-10-08 11:41 | PDINTPN ---
[employer] Progress Note Assessment/Plan: Assessment/plan: 66 M with elective hernia repair with mesh 05/2017 without complication; followed by development of SBO requiring resection in 06/2017. Recovered well except chronic constipation. Admitted 10/06 with BRBPR after initially streaky blood and difficult BM. Underwent EGD and colonoscopy which did not show source , and abdo/pelvis CT was unremarkable. Transfused 3 units total of RBC for DOA Hgb 6.7. * GIB with iunclear source- hemorrhoids, tanisha fissures, SB source? Stable for DC home with outpatient capsule enteroscopy. * Constipation- I recemmended observation only for now since he has been emptied with a bowel prep. Subjective: feels well. No further BM Objective: Vital Signs Temp Pulse Resp BP Pulse Ox 36.3 C 72 12 119/80 98 10/08/17 08:00 10/08/17 08:00 10/08/17 08:00 10/08/17 08:00 10/08/17 08:00 Laboratory Results 10/08/17 06:15 10/07/17 03:45 10/07/17 10/08/17 10/09/17 05:59 05:59 05:59 Intake Total 2989 2400 Output Total 800 0 Balance 2189 2400 PT 15.7 SEC (12.0-15.0) H 10/06/17 17:15 INR 1.23 (0.83-1.16) H 10/06/17 17:15 Physical Exam - Physical Exam General Appearance: WD/WN, alert, no apparent distress EENT: PERRL/EOMI Neck: non-tender, supple Respiratory: lungs clear, normal breath sounds, No respiratory distress, No accessory muscle use Cardiac/Chest: regular rate, rhythm, No edema Abdomen: normal bowel sounds, non-tender, soft, No distended Skin: normal color, warm/dry, No cyanosis Lymphatic: no adenopathy Extremities: No pedal edema Neuro/Psych: alert, normal mood/affect, oriented x 3 ICD10 Worksheet Patient Problems: Problems Problem Status Onset Lower GI bleeding Acute Normocytic anemia due to blood loss Acute Hiccups Acute Primary localized osteoarthritis of left hip Acute Small bowel obstruction Acute Vomiting Acute
--- NOTE | 2017-10-08 11:54 | GDS ---
[f rep st] DISCHARGE SUMMARY IN-HOSPITAL CONSULTANTS: Dr. Ferrer, Gastroenterology. DISCHARGE DIAGNOSIS: 1. Acute blood loss anemia. 2. Gastrointestinal bleed. HISTORY OF PRESENT ILLNESS: Mr. Steele is a pleasant 66-year-old gentleman with a recent history of he rnia repair complicated by small bowel obstruction due to a loop of small bowel being adhered to the hernia mesh requiring small bowel obstruction in 06/2017, who presented to [facility] on 10/06/2017, with bloody stools. His presenting hemoglobin was 6.7. He had a recent hemoglobin of 14 .1 in 07/2017. He was transfused 3 units of blood. GI was consulted for endoscopy and colonoscopy. These occurred on 10/07/2017. No identifiable source of bleeding was found. Coffee-grounds however were noted on lower endoscopy. The patient's diet was advanced which he tolerated without difficult y and his followup hemoglobin on the day of discharge was stable at 8.0, which was at 8.0 the day bef ore as well. At the time of discharge, the plan is for followup with GI to discuss the possibility o f capsule endoscopy. I did also discuss with him that should he have any recurrent bleeding, that it would be appropriate to return to the emergency room as our tentative plan currently would be for ta gged RBC scan should he rebleed. His was present at the bedside for this discussion. I also di scussed with him starting an iron supplement for the time being to ensure adequate iron levels. He d oes not have a restricted diet. He states that he does eat red meat, but his is currently limit ing red meat in her diet. EXAMINATION ON DAY OF DISCHARGE: VITAL SIGNS: Temperature 36.3, blood pressure is 119/80, heart rat e 72, respirations 12, saturating 98% on room air. GENERAL: Patient resting comfortably. He has bee n ambulating in the hallway without difficulty. HEART: Regular. LUNGS: Normal respiratory effort. ABDOMEN: Nondistended. GENITOURINARY: No Erazo catheter in place. SKIN: Slightly pale appearance. NOTABLE STUDIES: 1. Hemoglobin at the time of presentation was 6.7. Patient received 3 units of blood. His hemoglob in improved to 8.0 and was stable upon repeat on the morning of discharge. 2. Colonoscopy. One 8 mm submucosal nodule found in the appendiceal orifice. Biopsies taken. Other lucas, negative. 3. Endoscopy. Normal esophagus, stomach, and duodenum. 4. CT abdomen, pelvis performed 10/06/2017. Constipation. No evidence of small-bowel obstruction. Nonobstructive right nephrolithiasis. DISCHARGE MEDICATIONS: In short, no medication changes were made during this hospitalization other t natali recommending supplemental iron with ferrous sulfate 325 mg daily. The patient takes as needed Fl exeril and Famvir and [id number] supplements. DISCHARGE INSTRUCTIONS: I have recommended a followup visit with Dr. Ferrer to discuss the possibili ty of capsule endoscopy. I also recommend followup visit with Dr. Marx in 1 to 2 weeks' time fo r repeat hemoglobin and consider iron studies as well. TIME SPENT: 35 minutes of time dedicated to discharge efforts. /[id number]/MODL
== END 2017-10-08 11:45 | disposition home or self-care (01) | DRG 342 ==
LOC: F2N 18:43
PROVIDERS: ADMIT Family Medicine; ATTEND Family Medicine
PROC: 30233N1 Transfusion of Nonautologous Red Blood Cells into Peripheral Vein, Percutaneous Approach (ICD-10-PCS; 2017-10-06)
PROC: 0DJ08ZZ Inspection of Upper Intestinal Tract, Via Natural or Artificial Opening Endoscopic (ICD-10-PCS; principal; 2017-10-07 12:45)
PROC: 0DBH8ZX Excision of Cecum, Via Natural or Artificial Opening Endoscopic, Diagnostic (ICD-10-PCS; principal; 2017-10-07 12:45)
PROC: 0DBJ8ZX Excision of Appendix, Via Natural or Artificial Opening Endoscopic, Diagnostic (ICD-10-PCS; principal; 2017-10-07 12:45)
DX: K92.2 Gastrointestinal hemorrhage, unspecified (principal); D62 Acute posthemorrhagic anemia; Z87.891 Personal history of nicotine dependence; Z96.643 Presence of artificial hip joint, bilateral
CPT/HCPCS: J0171; J2704; P9016; Q9967

== ENCOUNTER → 2017-10-28 | Outpatient (CLI) | payer OTHER, MEDICARE | LOC: FIMAGING 13:02 | PROVIDERS: ATTEND Internal Medicine Gastroenterology | DX: K62.5 Hemorrhage of anus and rectum (principal); K59.00 Constipation, unspecified ==

== ENCOUNTER → 2018-10-27 | Outpatient (CLI) | payer OTHER, MEDICARE | LOC: FIMAGING 13:45 | PROVIDERS: ATTEND Orthopaedic Surgery | DX: M17.11 Unilateral primary osteoarthritis, right knee (principal); M71.21 Synovial cyst of popliteal space [Baker], right knee ==

== ENCOUNTER 2018-11-22 10:07 | Observation (INO) | payer OTHER, MEDICARE ==
--- NOTE | 2018-11-22 06:44 | PDHPUP ---
History & Physical Update H&P update statement: This history and physical update is based on an assessment of the patient which was completed after admission or registration (within 24 hours), but prior to the surgery/procedure. H&P update: H&P reviewed & patient examined, no change in patient's condition since H&P completed
[~2018-11-22 10:07] MED LIST: ROPIVACAINE 0.2% 80 MG, EPINEPHrine 0.2 MG, KETOROLAC TROMETHAMINE 30 MG in SYRINGE 0 ML IU ONE; TRANEXAMIC ACID 3,000 MG in NS (SYRINGE) 50 ML IRR ONE
[2018-11-22] MEDS ORDERED: FAMOTIDINE 20 MG TAB PO ONE (10:18)
[2018-11-22] MEDS ORDERED: ceFAZolin 2 GM/DEXTROSE 100 ML IV ONE (10:18)
[2018-11-22] MEDS ORDERED: DEXAMETHASONE 4 MG/ML VIAL IVP ONE (10:18)
[2018-11-22] MEDS ORDERED: ACETAMINOPHEN 325 MG TAB PO ONE (10:18)
[2018-11-22] MEDS ORDERED: LR 1,000 ML IV ONE (10:25)
[2018-11-22] MEDS ORDERED: TRANEXAMIC ACID 3,000 MG/50 ML BAG IRR ONE (10:46)
[2018-11-22] MEDS ORDERED: MIDAZOLAM 2 MG/2 ML VIAL IVP ONE (12:16)
--- NOTE | 2018-11-22 12:18 | PDANEPAE ---
ANE History of Present Illness 67 yo with right knee arthritis ANE Past Medical History - Cardiovascular History Hx Hypertension: No Hx Arrhythmias: No Hx Chest Pain: No Hx Coronary Artery / Peripheral Vascular Disease: No Hx CHF / Valvular Disease: No Hx Palpitations: No - Pulmonary History Hx COPD: No Hx Asthma/Reactive Airway Disease: No Hx Recent Upper Respiratory Infection: No Hx Oxygen in Use at Home: No Hx Sleep Apnea: Yes Sleep Apnea Screening Result - Last Documented: Negative - Neurologic History Hx Cerebrovascular Accident: No Hx Seizures: No Hx Dementia: No - Endocrine History Hx Diabetes: No - Renal History Hx Renal Disorders: No - Liver History Hx Hepatic Disorders: No - Neurological & Psychiatric Hx Hx Neurological and Psychiatric Disorders: No - Cancer History Hx Cancer: Yes Cancer History Comment: MELANOMA L FOREARM - Congenital Disorder History Hx Congenital Disorders: No - GI History Hx Gastrointestinal Disorders: No - Other Health History Other Health History: SEASONAL ALLERGIES. OSTEOARTHRITIS. RT SHLDR ROM DIFFICULT AT TIMES - Chronic Pain History Chronic Pain: Yes (RT KNEE) - Surgical History Prior Surgeries: EGD/COLONOSCOPY 10/06/17. CHADD TOTAL HIP. CHADD ING HERNIA. BOWEL RESECTION 2017. REMVL MELANOMA L ARM ANE Review of Systems Review of systems is: negative Review of Systems: - Exercise capacity METS (RN): 6 METS ANE Patient History - Allergies Allergies/Adverse Reactions: No Known Allergies Allergy (Verified 10/06/17 11:17) - Home Medications Home medications: home medication list seen and reviewed Home Medications: Acetaminophen/ASA/Caffeine [Excedrin Tablet (*)] 1 each PO DAILY PRN 10/06/17 [ Last Taken 11/19/18] Ascorbic Acid [Vitamin C 500 mg (*)] 500 mg PO DAILY 10/06/17 [Last Taken ] Cholecalciferol Vit D3 [Vitamin D3 (*)] 5,000 units PO DAILY 10/06/17 [Last Taken Unknown] Cyclobenzaprine [Flexeril 10 MG (*)] 10 mg PO DAILY PRN 10/06/17 [Last Taken 11/03] Herbals/Supplements -Info Only 1 ea PO DAILY 10/06/17 [Last Taken 10/25/18] Multivitamins [Multivitamin (*)] 1 each PO DAILY 10/06/17 [Last Taken 10/25/18] Amoxicillin Trihydrate [Amoxicillin] 2,000 mg PO AD PRN 10/31/18 [Last Taken ] Docusate Sodium [Colace 100 MG (*)] 100 mg PO BID PRN 10/31/18 [Last Taken 11/21] Fexofenadine HCl [Wanda Allergy] 180 mg PO DAILY PRN 10/31/18 [Last Taken 02/02] Ketotifen Fumarate [Allergy Eye Drops] 1 drop EACHEYE DAILY PRN 10/31/18 [Last Taken 10/23/18] Melatonin [Melatonin 3 MG (*)] 3 mg PO HS PRN 10/31/18 [Last Taken 10/23/18] Sildenafil Citrate [Viagra] 100 mg PO AD PRN 10/31/18 [Last Taken 11/01/18] diphenhydrAMINE [Benadryl 25 MG (*)] 25 mg PO HS PRN 10/31/18 [Last Taken ] traMADol [Ultram 50 mg (*)] 50 mg PO Q4 PRN 10/31/18 [Last Taken 11/11/18] valACYclovir [Valtrex (*)] 1,500 mg PO BID PRN 10/31/18 [Last Taken 11/18/18] - NPO status NPO Since - Liquids (Date): 11/22/18 NPO Since - Liquids (Time): 09:00 NPO Since - Solids (Date): 11/21/18 NPO Since - Solids (Time): 20:00 - Smoking Hx Smoking Status: Former smoker ANE Labs/Vital Signs - Vital Signs Blood Pressure: 144/88 Heart Rate: 61 Respiratory Rate: 16 O2 Sat (%): 99 Height: 172.72 cm Weight: 68.039 kg ANE Physical Exam - Airway Neck exam: FROM Mallampati Score: Class 1 Mouth exam: normal dental/mouth exam - Pulmonary Pulmonary: no respiratory distress - Cardiovascular Cardiovascular: regular rate and rhythym - ASA Status ASA Status: II ANE Anesthesia Plan Anesthesia Plan: spinal Regional Anesthesia: adductor canal FNB
[2018-11-22] MEDS ORDERED: MIDAZOLAM 2 MG/2 ML VIAL ONE (12:21)
[2018-11-22] MEDS ORDERED: fentaNYL 100 MCG/2 ML INJ ONE (12:42)
[2018-11-22] MEDS ORDERED: PROPOFOL/EMULSION 500 MG/50 ML BOTTLE IV ONE (12:42)
[2018-11-22] MEDS ORDERED: TEMAZEPAM 15 MG CAP PO PRN (14:06)
[2018-11-22] MEDS ORDERED: CYCLOBENZAPRINE 10 MG TAB PO PRN (14:06)
[2018-11-22] MEDS ORDERED: DIPHENOXYLATE/ATROPINE LOMOTIL 1 TAB PO PRN (14:06)
[2018-11-22] MEDS ORDERED: POLYETHYLENE GLYCOL 3350 17 GM PKT PO PRN (14:06)
[2018-11-22] MEDS ORDERED: diphenhydrAMINE 25 MG CAP PO PRN (14:06)
[2018-11-22] MEDS ORDERED: ONDANSETRON DISINTEGRATING 4 MG TAB PO PRN (14:06)
[2018-11-22] MEDS ORDERED: METOCLOPRAMIDE 10 MG/2 ML VIAL IVP PRN (14:06)
[2018-11-22] MEDS ORDERED: PROMETHAZINE HCL 25 MG SUPPR PR PRN (14:06)
[2018-11-22] MEDS ORDERED: MAGNESIUM HYDROXIDE 30 ML UDCUP PO PRN (14:06)
[2018-11-22] MEDS ORDERED: BISACODYL 10 MG SUPP PR PRN (14:06)
[2018-11-22] MEDS ORDERED: ONDANSETRON 4 MG/2 ML VIAL IVP PRN ×2 (14:06→14:26)
[2018-11-22] MEDS ORDERED: LACTULOSE 20 GM/30 ML UDCUP PO PRN (14:06)
[2018-11-22] MEDS ORDERED: PROMETHAZINE HCL 25 MG/ML INJ IVP PRN ×2 (14:06→14:26)
[2018-11-22] MEDS ORDERED: valACYclovir 500 MG TAB PO PRN (14:07)
[2018-11-22] MEDS ORDERED: Fexofenadine Hcl [Allegra Allergy] 180 MG PO PRN (14:07)
[2018-11-22] MEDS ORDERED: MELATONIN 3 MG TAB PO PRN (14:07)
[2018-11-22] MEDS ORDERED: [UNRECOGNIZED DRUG - REMARK] EACHEYE PRN (14:07)
[2018-11-22] MEDS ORDERED: fentaNYL 100 MCG/2 ML INJ IVP PRN (14:26)
[2018-11-22] MEDS ORDERED: NALOXONE HCL 0.4 MG/ML INJ IVP PRN (14:26)
[2018-11-22] MEDS ORDERED: LR 1,000 ML IV SCH (14:30)
--- NOTE | 2018-11-22 16:24 | POSTOPPROG ---
Post Op Note Date of Operation: 11/22/18 Surgeon: Kenneth Dudley Outreach Team Member: Selin Thapa PAC Anesthesiologist: Dr. Shoemaker Warm Anesthesia: Spinal, Other (Specify) (adductor canal block) Pre-op Diagnosis: right knee OA Post-op Diagnosis: same Indication: right knee pain Procedure: RTKA, robot assisetd Findings: severe OA of right knee Inf/Abcess present in the surg proc area at time of surgery?: No EBL: 50-100
[2018-11-22] MEDS: ACETAMINOPHEN 325 MG TAB PO SCH (19:36)
[2018-11-22] MEDS: ceFAZolin 2 GM/DEXTROSE 100 ML IV SCH (19:36)
[2018-11-22] MEDS: FAMOTIDINE 20 MG TAB PO SCH (21:50)
[2018-11-22] MEDS: ASPIRIN 81 MG CHEWABLE TAB PO SCH (21:50)
[2018-11-22] MEDS: SENNOSIDES/DOCUSATE SODIUM TAB PO SCH (21:51)
[2018-11-22] MEDS: oxyCODONE IR 5 MG TAB PO PRN (22:20)
[2018-11-23] MEDS: ACETAMINOPHEN 325 MG TAB PO SCH ×2 (01:55→09:02)
[2018-11-23] MEDS: ceFAZolin 2 GM/DEXTROSE 100 ML IV SCH (04:27)
[2018-11-23 07:21] VITALS: BP 120/82
--- NOTE | 2018-11-23 08:18 | SOAPPROG ---
SOAP Progress Note Assessment/Plan: Assessment: s/p right TKA, DIPAK assist - POD 1 Doing well Anemia - expected initially post-op, asymptomatic, continue to monitor Plan: d/c home today - patient doing better than expected. He will have support of family/ Continue PT efforts - needs clearance from PT prior to d/c. WBAT, ROM but keep knee flexion < 90 degrees until POD 5-7. Begin outpatient PT within in the 1-2 weeks. Continue VTE ppx- aspirin 81 mg BID x 4 weeks, ANEUDY hose x 2 weeks, SCDs in hospital Continue oral pain medication - oxycodone, celebrex, tylenol Subjective: Patient states he is doing well. He has been elevating the right leg up on the table in his room. Reports he feels well enough to go home today. He has outpatient PT scheduled to begin 12/01/18 at [facility]. He denies SOB, CP, fever, chills. Objective: Vital Signs Temp Pulse Resp BP Pulse Ox 36.5 C 67 17 120/82 H 95 11/23/18 07:17 11/23/18 07:17 11/23/18 07:17 11/23/18 07:17 11/23/18 07:17 Laboratory Results 11/23/18 04:27 11/22/18 11/23/18 11/24/18 05:59 05:59 05:59 Intake Total 2060 Output Total 930 Balance 1130 Patient sitting in his chair, no acute distress. He has the right leg elevated up on his food table. RLE: Wound dressings clean, dry and intact. ANEUDY hose in place. Lower leg compartments are soft and nontender. Patient can actively DF and PF right foot and great toe against resistance. Grossly NVI distally. ICD10 Worksheet Patient Problems: Problems Problem Status Onset Unilateral primary osteoarthritis, right knee Acute Hiccups Acute Lower GI bleeding Acute Normocytic anemia due to blood loss Acute Primary localized osteoarthritis of left hip Acute Small bowel obstruction Acute Vomiting Acute
--- NOTE | 2018-11-23 08:26 | PDDCSUM ---
Discharge Summary Discharge Summary: ADMISSION DIAGNOSIS: Right knee severe degenerative arthritis DISCHARGE DIAGNOSIS: Right knee severe degenerative arthritis OPERATION PERFORMED: November 22, 2018 Right total knee arthroplasty, Vasu robot assisted. POSTOPERATIVE COMPLICATIONS: None CONDITION ON DISCHARGE: Improved HPI: The patient is a 68 year old male who has end-stage arthritis of his right knee. Clinical and radiographic features are consistent with this. Patient has failed attempts at conservative management, therefore, recommended operative right total knee replacement. DESCRIPTION OF HOSPITAL COURSE: The patient was admitted to the hospital on the morning of surgery and underwent a right total knee arthroplasty, Vasu robot assisted. Postoperatively, patient was treated with multimodal DVT prophylaxis, including aspirin 81 mg BID, ANEUDY hose, SCDs. Patient was seen by PT and made good progress with ambulation and stairs. On the first post-operative day the patients H&H was 13.1/38.9. Patient was able to void spontaneously. At the time of discharge, patient was afebrile, wound was clean and dry. Patient is walking with a walker. DISPOSITION: The patient is discharged home with the support of his /family and will have outpatient PT at [facility] beginning on 12/01/18. Patient may progress to full weightbearing on the right lower extremity as tolerated. ANEUDY stockings for 2 weeks during the day time. Aspirin 81 mg BID for 4 weeks. Patient has prescriptions for Celebrex, oxycodone for pain control. He may continue to take Tylenol as needed for pain. The patient will be seen by Dr. Perez office in approximately 3 weeks. If there are any problems, patient is to call Dr. Perez office.
[2018-11-23] MEDS: oxyCODONE IR 5 MG TAB PO PRN (09:01)
[2018-11-23] MEDS: SENNOSIDES/DOCUSATE SODIUM TAB PO SCH (09:02)
[2018-11-23] MEDS: FAMOTIDINE 20 MG TAB PO SCH (09:03)
[2018-11-23] MEDS: ASPIRIN 81 MG CHEWABLE TAB PO SCH (09:03)
--- NOTE | 2018-11-23 10:13 | ASMTLACE ---
LACE Length of stay for Answers: 2 days current admission Acuity / Level of Answers: No Care: Did the patient have an inpatient admission? Comorbidities - select Answers: Opioid dependence all that apply / Chronic pain # of Emergency department Answers: 0 visits in the last 6 months Score: 6 Date Signed: 11/23/2018 10:11 AM Electronically Signed By:WINSTON Leo
--- NOTE | 2018-11-23 13:09 | GOP ---
[f rep st] OPERATIVE REPORT DATE OF OPERATION: 11/22/2018 SURGEON: César Dudley MD SURGEON PARTNER: Madison Thapa P.A.-C ANESTHESIA: Spinal. PREOPERATIVE DIAGNOSIS: Right knee osteoarthritis. POSTOPERATIVE DIAGNOSIS: Right knee osteoarthritis. PROCEDURE PERFORMED: Right total knee arthroplasty with computer navigation, robotic assist. FINDINGS: ESTIMATED BLOOD LOSS: 30 cc INDICATIONS: The patient is a 68-year-old male with severe and progressive pain and deformity of the right knee unresponsive to conservative care. The risks and benefits of surgical intervention were explained in detail. DESCRIPTION OF PROCEDURE: The patient was brought to the operative room and placed on the table in t he supine position. Spinal anesthesia was induced without difficulty. A pneumatic tourniquet was appl ied about the right proximal thigh, and the leg was prepped and draped in a sterile fashion. The leg santos was applied. After exsanguination by elevation the tourniquet was inflated to 250 mmHg. Incision was made anterior medial from the tibial tuberosity to a point 2 cm proximal to the superior pole of the patella. Medial parapatellar arthrotomy was carried out from the superior pole of the pa tella and posteriorly in line with the fibers of the Type II VMO. The medial collateral ligament was elevated and the infrapatellar fat pad was resected. Pathology: Severe medial patellofemoral osteoarthritis. The patella was everted and the articular surface was excised. A 38 mm patellar button was placed. Attention was turned first to the distal aspect of the femur. After exposure of the femur, 2 half pi ns were placed for fixation of the femoral array. In a similar fashion, 2 pins were placed anteromed ial on the tibia for fixation of the tibial array. External land marking and registration of the hip center was performed without difficulty. Internal femoral and tibial registration was carried out w ithout difficulty and the femoral and tibial checkpoints were placed and verified for accuracy. Attention was turned to the femur. The foot print for the size 5 femoral component was cut with the saw using the [employer] robotic system and verified for accuracy against the CT based plan. In a similar f ashion, the saw was used to cut the footprint for the size 6 tibial component using the [employer] system an d verified for accuracy against the CT based plan. The tibial articular surface was excised without d ifficulty, followed by the intercondylar box cut. The knee was extended and the remnants of the medial and lateral meniscus were excised. The posterior capsule was injected with ropivacaine, epinephrine and Toradol. A size tibial tray was p ositioned. Trial reduction was then carried out. There was excellent range of motion, alignment, and stability using the 6 x 9 mm polyethylene. All trials were then removed. The joint was thoroughly irrigated and carefully dried. The components were implanted. The permanent 6 x 9 mm polyethylene was placed without difficulty. The tourniquet was deflated and all bleeders were coagulated. The wound was thoroughly irrigated and closed using interrupted sutures of 2-0 Vicryl for the joint capsule. The subcu was closed with 3-0 V icryl and the skin with 4-0 Monocryl. Dermabond and Steri-Strips were applied followed by a compress cirilo dressing. The patient was then moved from the operating room to the recovery room in good conditi on, having tolerated the procedure well. /[id number]/MODL
== END 2018-11-23 11:27 | disposition home or self-care (01) ==
LOC: F3N 10:07
PROVIDERS: ADMIT Orthopaedic Surgery; ATTEND Orthopaedic Surgery
DX: M17.11 Unilateral primary osteoarthritis, right knee (principal); D62 Acute posthemorrhagic anemia; Z96.643 Presence of artificial hip joint, bilateral
CPT/HCPCS: 27447; 73560; 88311; 97116; 97161; C1776; J0171; J0690; J1100; J1885; J2250; J2704; J2795; J3010